=== PATIENT | female | born 1965 | race Caucasian/White ===

== ENCOUNTER 2020-06-25 11:10 | Outpatient (REF) | payer BC, SELFPAY ==
--- NOTE | 2020-06-25 | XR_ITS ---
EXAMINATION: XR FINGER, RIGHT CLINICAL INFORMATION: Right thumb pain. Status post injury. Suspected fracture. COMPARISON: None TECHNIQUE: Three views of the right thumb including frontal view of the right hand. FINDINGS: The bones and soft tissues are normal. No fracture. Alignment is anatomic. Joint spaces are maintained. XR/XR finger RT min 2V IMPRESSION: No radiographic evidence of any displaced fracture, subluxation or dislocation or radiopaque foreign body identified involving the right thumb.
== END 2020-06-25 11:11 | disposition home or self-care (01) ==
LOC: HO.HMGCX 11:10
PROVIDERS: PCP Internal Medicine; Visit Provider Internal Medicine
DX: M79.644 Pain in right finger(s) (principal)
CPT/HCPCS: 73140

== ENCOUNTER 2022-02-28 11:44 | Outpatient (REF) | payer BC, SELFPAY ==
--- NOTE | ~2022-02-28 | XR_ITS ---
EXAMINATION: XR CHEST CLINICAL INFORMATION: Cough. Shortness of breath. Rule out pneumonia. COMPARISON: None TECHNIQUE: 2 views of the chest were obtained. FINDINGS: No significant abnormality is noted involving the heart, lungs, mediastinum, bony thorax or soft tissues. XR/XR chest 2V IMPRESSION: Normal chest PA and lateral.
== END 2022-02-28 11:45 | disposition home or self-care (01) ==
LOC: HO.HMGCX 11:44
PROVIDERS: PCP Internal Medicine; Visit Provider Internal Medicine
DX: R05.9 Cough, unspecified (principal); R06.02 Shortness of breath
CPT/HCPCS: 71046

== ENCOUNTER 2022-07-17 11:41 | Outpatient (REF) | payer BC, SELFPAY ==
--- NOTE | ~2022-07-17 | XR_ITS ---
EXAMINATION: XR KNEE, RIGHT CLINICAL INFORMATION: Pain COMPARISON: None TECHNIQUE: Four views of the right knee. FINDINGS: There is no evidence of acute fracture or dislocation of the right knee. The right knee joint spaces are maintained. No significant spurring is appreciated. No right knee effusion is noted. There is a bone island seen about the lateral tibial plateau. XR/XR knee RT 4V IMPRESSION: No acute fracture, dislocation, or effusion of the right knee. No significant degenerative change.
== END 2022-07-17 11:42 | disposition home or self-care (01) ==
LOC: HO.HMGCX 11:41
PROVIDERS: PCP Internal Medicine; Visit Provider Internal Medicine
DX: M25.561 Pain in right knee (principal)
CPT/HCPCS: 73564

== ENCOUNTER 2023-04-23 08:35 | Outpatient (REF) | payer BC, SELFPAY ==
[2023-04-23 12:10] LABS: Hematocrit 44.6 % (37.0-47.0); Hemoglobin 14.1 g/dl (12.0-16.0); Mean Corpuscular HGB Conc 31.6 g/dl (31.0-35.0); Mean Corpuscular Hemoglobin 29.7 pg (27.0-33.0); Mean Corpuscular Volume 93.9 fL (80.0-98.0); Mean Platelet Volume 10.2 fL (9.4-12.3); Platelet Count 322 X10*3/uL (160-400); Red Blood Count 4.75 X10*6/uL (4.20-5.50); Red Cell Distribution Width 12.9 % (11.0-16.0); White Blood Count 4.7 X10*3/uL (4.8-10.8)
[2023-04-23 12:40] LABS: Alanine Aminotransferase 15 U/L (0-31); Albumin Level 4.7 g/dL (3.5-5.0); Alkaline Phosphatase 87 U/L (39-117); Anion Gap 12 (12-20); Aspartate Amino Transferase 24 U/L (5-31); Bilirubin Total 1.3 mg/dL (0.0-1.0); Blood Urea Nitrogen 19 mg/dL (9-16); Calcium 9.8 mg/dL (8.4-10.2); Carbon Dioxide 27 mmol/L (22-29); Chloride 105 mmol/L (96-108); Estimated Glomerular Filt Rate > 60; Glucose Fasting 84 mg/dL (60-99); Potassium 4.5 mmol/L (3.3-5.1); Sodium 139 mmol/L (135-145); Total Protein 7.6 g/dL (6.5-8.0)
[2023-04-23 12:46] LABS: Thyroid Stimulating Hormone 1.16 uIU/mL (0.32-4.0); Vitamin D 25-OH Total 52.3 ng/mL (>30)
[2023-04-23 12:50] LABS: Parathyroid Hormone Intact 56.8 pg/mL (8.7-77.1)
== END 2023-04-23 08:36 | disposition home or self-care (01) ==
LOC: HO.HMGCLDS 08:35
PROVIDERS: PCP Internal Medicine; Visit Provider Obstetrics & Gynecology Gynecology
DX: M81.0 Age-related osteoporosis without current pathological fracture (principal); N92.5 Other specified irregular menstruation; M85.89 Other specified disorders of bone density and structure, multiple sites; Z13.29 Encounter for screening for other suspected endocrine disorder
CPT/HCPCS: 36415; 80053; 82306; 83970; 84443; 85027

== ENCOUNTER 2024-01-29 09:43 | Outpatient (REF) | payer BC, SELFPAY ==
[2024-01-29 13:13] LABS: MANUAL DIFF FLAG NO
[2024-01-29 13:32] LABS: Basophils Percent Auto 0.5 % (0-2); Eosinophils Absolute Auto 0.1 X10*3/uL (0.0-0.4); Eosinophils Percent Auto 1.3 % (0-4); Hematocrit 42.5 % (37.0-47.0); Hemoglobin 13.8 g/dl (12.0-16.0); Imm Gran Abs Auto 0.01 X10*3/uL (0.00-0.03); Imm Gran Pct Auto 0.2 % (0.0-0.4); Lymphocytes Absolute Auto 1.5 X10*3/uL (1.2-4.9); Lymphocytes Percent Auto 27.3 % (20-40); Mean Corpuscular HGB Conc 32.5 g/dl (31.0-35.0); Mean Corpuscular Hemoglobin 30.7 pg (27.0-33.0); Mean Corpuscular Volume 94.4 fL (80.0-98.0); Mean Platelet Volume 9.9 fL (9.4-12.3); Monocytes Absolute Auto 0.5 X10*3/uL (0.1-1.2); Monocytes Percent Auto 8.5 % (2-11); Neutrophils Absolute Auto 3.4 x10*3/uL (2.0-8.3); Neutrophils Percent Auto 62.2 % (45-73); Platelet Count 328 X10*3/uL (160-400); Red Cell Distribution Width 13.7 % (11.0-16.0); White Blood Count 5.5 X10*3/uL (4.8-10.8)
[2024-01-29 14:10] LABS: Alanine Aminotransferase 32 U/L (0-31); Albumin Level 4.5 g/dL (3.5-5.0); Alkaline Phosphatase 82 U/L (39-117); Anion Gap 12 (12-20); Aspartate Amino Transferase 24 U/L (5-31); Bilirubin Total 1.3 mg/dL (0.0-1.0); Blood Urea Nitrogen 21 mg/dL (9-16); Calcium 9.3 mg/dL (8.4-10.2); Carbon Dioxide 26 mmol/L (22-29); Chloride 105 mmol/L (96-108); Cholesterol 233 mg/dL (<200); Estimated Glomerular Filt Rate > 60; Glucose Random 79 mg/dL (60-115); HDL Cholesterol 116 mg/dL (>40); LDL Cholesterol Calculated 108 mg/dL (<100); Potassium 4.2 mmol/L (3.3-5.1); Sodium 139 mmol/L (135-145); Total Protein 7.2 g/dL (6.5-8.0); Triglycerides 48 mg/dL (<150)
== END 2024-01-29 09:44 | disposition home or self-care (01) ==
LOC: HO.HMGCLDS 09:43
PROVIDERS: PCP Internal Medicine; Visit Provider Internal Medicine
DX: E78.00 Pure hypercholesterolemia, unspecified (principal); R53.83 Other fatigue
CPT/HCPCS: 36415; 80053; 80061; 85025

== ENCOUNTER 2024-04-13 09:32 | Day surgery (SDC) | payer BC, SELFPAY ==
[2024-04-11 13:52] VITALS: BMI 18.4
--- NOTE | 2024-04-12 08:52 | P.CONAN_ITS ---
Documented by User: Munira Cook NP 04/12/24 08:52 HPI - Anesthesia Eval Consult details Narrative: 59yo F for Colonoscopy [facility] Past Medical History Medical History No pertinent past medical history Surgical History Surgical History History of surgery History of dilatation and curettage Hx of section H/O colonoscopy Social History Social History (Updated 04/11/24 @ 13:52 by Kisha Valle RN) Household Members: Spouse Are you a primary healthcare specialist to a significant other at home: No Do you presently have visiting nurse or other home services: No Patient Tobacco Use Status: Never used Tobacco Use of substances other than those prescribed or required for medical reasons: No Have you been hit, kicked, punched, or otherwise hurt by someone within the past year? If so, by whom?: No Are you DNR?: No Advance Directives: No Advance Directives Information Provided: Yes Recently lost weight without trying: No Nutrition Risks: No Nutritional Risk Meds Allergies Allergy/AdvReac Type Severity Reaction Status Date / Time No Known Allergies Allergy Verified 04/13/24 09:29 [No Known Allergies*] Home Medications ?Medication ?Instructions ?Recorded ?Confirmed ?Last Taken ?Type No Known Home Meds 04/11/24 04/11/24 Unknown History Exam Height,Weight and Vital Signs: Height 5 ft 6 in Weight 51.71 kg Assessment and Plan Assessment Anesthesia Assessment: Chart Reviewed Documented by User: Trent Roche MD 04/13/24 10:11 [facility] Past Medical History Medical History No pertinent past medical history Family History Family history of problems with anesthesia: No Surgical History Surgical History History of surgery History of dilatation and curettage Hx of section H/O colonoscopy History of Problems with Anesthesia: No Social History Social History (Updated 04/11/24 @ 13:52 by Kisha Valle RN) Household Members: Spouse Are you a primary healthcare specialist to a significant other at home: No Do you presently have visiting nurse or other home services: No Patient Tobacco Use Status: Never used Tobacco Use of substances other than those prescribed or required for medical reasons: No Have you been hit, kicked, punched, or otherwise hurt by someone within the past year? If so, by whom?: No Are you DNR?: No Advance Directives: No Advance Directives Information Provided: Yes Recently lost weight without trying: No Nutrition Risks: No Nutritional Risk Meds Allergies Allergy/AdvReac Type Severity Reaction Status Date / Time No Known Allergies Allergy Verified 04/13/24 09:29 [No Known Allergies*] Home Medications ?Medication ?Instructions ?Recorded ?Confirmed ?Last Taken ?Type No Known Home Meds 04/11/24 04/11/24 Unknown History Exam Airway Mallampati Class: I TM Dist: >3cm Neck ROM: Full Assessment and Plan Assessment Anesthesia Assessment: Anesthesia Plan Discussed Final Anesthetic Review Family History of Problems with Anesthesia: No History of Problems with Anesthesia: No NPO: Yes ASA Class: I Final Preanesthetic Review: No Changes in Pt Med Stat, Meds/Allgs Chart Reviewed, Consent Obtained/Reviewed and Anes Risks/Benef Reviewed Patient Risk: Low Procedure Risk: Low Anesthetic Plan Anesthetic Plan: TIVA Disposition: Standard PACU
[2024-04-13 09:48] VITALS: BMI 18.0
[2024-04-13 10:02] VITALS: BP 99/50; PULSE 77; RESP 16; TEMP 36.4; O2SAT 99
[2024-04-13] MEDS: Lactated Ringers 1,000 ML 100 ML IVCONT (10:11)
[2024-04-13 11:47] VITALS: BP 88/49; PULSE 83; RESP 16; TEMP 36.1; O2SAT 98
--- NOTE | 2024-04-13 11:49 | PM.OP ---
Brief Operative Note Date of Service: 04/13/24 Pre-op diagnosis: Screening Post-op diagnosis: other (Polyps) Procedure: Colonoscopy to the cecum with cold snare polypectomy x 3 Surgeon: Gustavo Dominguez MD Anesthesia: MAC Was an Strategy Execution Consultant used for this Procedure?: No Estimated blood loss (mL): 2.0 Pathology: other (A. Cecal polyp B. Ascending colon polyps) Condition: stable Disposition: PACU
[2024-04-13 12:02] VITALS: BP 93/55; PULSE 79; RESP 16; O2SAT 100
[2024-04-13 12:18] VITALS: BP 95/56; PULSE 68; RESP 16; TEMP 36.9; O2SAT 100
--- NOTE | 2024-04-13 12:19 | OP_ITS ---
DATE OF SERVICE: 04/13/2024 SURGEON: Gustavo Dominguez MD INDICATIONS: The patient presents for evaluation of colorectal cancer screening. Full consent has been obtained from her for this, including risks of bleeding and perforation. PREOPERATIVE DIAGNOSIS: Colorectal cancer screening. POSTOPERATIVE DIAGNOSIS: PROCEDURE PERFORMED: Colonoscopy to cecum with cold snare polypectomy x 3. ESTIMATED BLOOD LOSS: COMPLICATIONS: ANESTHESIA: ASSISTANTS: SPECIMENS: POSTOPERATIVE DIAGNOSES: Colorectal cancer screening, colon polyps, mild sigmoid diverticulosis, and internal hemorrhoids. DESCRIPTION OF PROCEDURE: The patient was placed in left lateral decubitus position. The digital rectal exam revealed no abnormalities. The Olympus video pediatric colonoscope was entered into the rectum and advanced to the cecum with the assistance of abdominal wall pressure. Once in the cecum, I did identify cecal pouch with appendiceal orifice and a normal-appearing ileocecal valve. There was transillumination of light deep in the right lower quadrant. The entire cecum was well visualized. In the cecum, there was an approximately 4 mm polyp, which was removed by cold snare polypectomy and recovered by suction. The polypectomy site appeared clean, without any sign of residual polyp nor significant bleeding. The scope was then slowly withdrawn assessing all mucosal surfaces carefully. Preparation was excellent after the 2-day prep. In the proximal ascending colon, there were 2 relatively flat, approximately 8 mm polyps, both of which were removed by cold snare polypectomy and recovered by suction. Both polypectomy sites appeared clean, without any sign of residual polyp nor significant bleeding. I did not visualize any other polyps, colitis, or angiodysplasia. There was a mild amount of sigmoid diverticulosis. In the rectum, scope was retroflexed, visualizing internal hemorrhoids, but no other pathology. The rectal mucosa appeared normal. The scope was straightened and withdrawn from the patient. She tolerated the procedure well and was returned to the recovery area in stable condition. IMPRESSION: 1. Colon polyps. 2. Mild diverticulosis. 3. Internal hemorrhoids. PLAN: The results of the pathology will be checked. If the polyps are all hyperplastic, I would recommend a followup coloscopy in 10 years for screening. If any of them are tubular adenomas, I would recommend a followup colonoscopy in 5 years. If the 2 larger polyps are serrated polyps, I would then recommend a followup colonoscopy within 3 years. She was advised not to use any aspirin and NSAIDs for 1 week. She should use Miralax and fiber supplements at least once or twice every day for her chronic constipation. This has been discussed with her mother. She will otherwise see me on a p.r.n. basis. MD JOSE ROBERTO Underwood/JT / [phone] MTDD
== END 2024-04-13 12:47 | disposition home or self-care (01) ==
PROVIDERS: PCP Internal Medicine; Visit Provider Internal Medicine
PROC: 0DJD8ZZ Inspection of Lower Intestinal Tract, Via Natural or Artificial Opening Endoscopic (ICD-10-PCS; CPT 45378; principal; 2024-04-13 10:30)
DX: Z12.11 Encounter for screening for malignant neoplasm of colon (principal); D12.0 Benign neoplasm of cecum; D12.2 Benign neoplasm of ascending colon; K57.30 Diverticulosis of large intestine without perforation or abscess without bleeding; K64.8 Other hemorrhoids; K59.09 Other constipation; Z80.3 Family history of malignant neoplasm of breast
CPT/HCPCS: 45385; 88305; J2003; J2250; J2704

== ENCOUNTER 2024-08-01 14:58 | Outpatient (REF) | payer BC, SELFPAY ==
--- NOTE | ~2024-08-01 | XR_ITS ---
EXAMINATION: XR PELVIS CLINICAL INFORMATION: PELVIC, LOWER BACK PAIN COMPARISON: None available. TECHNIQUE: AP view of the pelvis. FINDINGS: No fracture. Hip joint spaces are maintained. Normal acetabular coverage. Alignment is anatomic. Sacroiliac joints and pubic symphysis are normal. No abnormal soft tissue calcifications. XR/XR pelvis 1-2V IMPRESSION: Normal pelvis. Electronically signed by: Maximino Dao MD 08/02/2024 01:13 PM EDT
--- NOTE | ~2024-08-01 | XR_ITS ---
EXAMINATION: XR LUMBOSACRAL SPINE CLINICAL INFORMATION: LOW BACK PAIN COMPARISON: None available. TECHNIQUE: Three views of the lumbosacral spine. FINDINGS: There is a gentle right convex scoliosis, possibly positional. Normal lordosis. Normal alignment. No subluxation. No fracture, compression deformity, or suspicious bone lesion. Early disc degeneration L2-3. Discs otherwise normal. Facets are normally aligned. No significant facet arthropathy. SI joints and sacrum appear normal. No soft tissue abnormality. XR/XR lumbar spine 2-3V IMPRESSION: 1. Early disc degeneration L2-3. Otherwise normal exam. Electronically signed by: Maximino Dao MD 08/02/2024 01:15 PM EDT
--- OUTSIDE RECORDS SUMMARY | 2024-08-01 17:10 | XMS_ITS | Clinical Summary ---
Author Organization [facility] Address [address] [place] [address] Phone Care Team Providers Care Corporate Strategy Intern Name Role Phone Unavailable Primary Care Provider Unavailabl e Social History Tobacco Use Types Packs/Day Years Used Date Smoking Tobacco: Never Assessed Comments Unknown Sex and Gender Information Value Date Recorded Sex Assigned at Not on file Legal Sex Female 1:16 PM EST Gender Identity Not on file Sexual Orientation Not on file Plan of Treatment Health Maintenance Due Date Last Done Comments DTaP,Tdap,and Td Vaccines (1 - Tdap) 02/02/1984 Hepatitis B Vaccines (1 of 3 - 19+ 3-dose series) 02/02/1984 Cervical Cancer Screening: Pap Smear 1986 Pneumococcal Vaccine: 50+ Years (1 of 1 - PCV) 2015 Zoster Vaccines (1 of 2) 2015 Colorectal Cancer Screening: Colonoscopy 04/22/2022 Depression Screening 04/22/2022 HIV Screening 04/22/2022 Hepatitis C Screening 04/22/2022 Social Influencers of Health Screening 04/22/2022 COVID-19 Vaccine ( - 2023- season) 2024 Influenza Vaccine (#1) 2024 Breast Cancer Screening 03/17/2026 03/17/20 24, 03/12/2023, 03/03/2022, Additional history exists RSV Immunization Patients 60+ Years Old (1 - 1-dose 75+ series) 02/02/2040 HIB Vaccines Aged Out No longer eligi ble based on patient's age to complete this topic HPV Vaccines Aged Out No longer eligi ble based on patient's age to complete this topic Hepatitis A Vaccines Aged Out No long er eligible based on patient's age to complete this topic IPV Vaccines Aged Out No longer eligi ble based on patient's age to complete this topic MMR Vaccines Aged Out No longer eligi ble based on patient's age to complete this topic Meningococcal ACWY Vaccine Aged Out N o longer eligible based on patient's age to complete this topic Meningococcal B Vacine Aged Out No lo nger eligible based on patient's age to complete this topic Pneumococcal Vaccine: Pediatrics (0 to 5 Years) and At-Risk Patients (6 to 64 Years) Aged Out No longer eligible based on patient's age to complete this topic RSV Immunization Patients Under 20 months Aged Out No longer eligible based on patient's age to complete this topic Varicella Vaccines Aged Out No longer eligible based on patient's age to complete this topic Procedures Procedure Name Priority Date/Time Associated Diagnosis Comments [facility] SCREENING DIGITAL Routine 03/17/2024 11:02 AM EDT Encounter for screening mammogram for malignant neoplasm of breast from Last 3 Months or Most Recently Relevant to Health Maintenance Results * [facility] SCREENING DIGITAL (03/17/2024 11:02 AM EDT) Anatomical Region Laterality Modality Mammography 03/17/2024 9:29 AM EDT Narrative 03/17/2024 11:[address] [facility] Diagnostic Imaging Department [address] [place] [id number] Patient: ??ERIKA KENT ?/Age/Sex: 1965 - 59 - F Unit#: ??[id number] ? Location/Status: ??SPDIMAM/REG CLI ? Mnemonic/Ordering Site: ??DIGSC/SPMAM Ordering Physician: ??AMANDA GRIFFIN MD [facility] Screening Digital - 03/17/24 - 0953 Report Status:Signed EXAM: [facility] Screening Digital EXAM DATE AND TIME: 03/17/2024 9:54 AM HISTORY: ??Annual screening COMPARISON: ??03/12/2023, 03/17/2023, 03/03/2022, 02/25/2021 and 02/22/2020 TECHNIQUE: Bilateral digital breast tomosynthesis was performed in the CC and MLO projections. Computer aided detection with Zealify 7.2-H and SnapTell 3D 3.1 was employed. TISSUE DENSITY: b. There are scattered areas of fibroglandular density. FINDINGS: No suspicious masses, grouped microcalcifications, or areas of architectural distortion are seen. The skin and vascularity are unremarkable. ??Stable biopsy marker in the right breast. IMPRESSION: Stable mammographic appearance of the breasts. ??No evidence of malignancy is seen. A negative mammogram in the presence of a clinically suspicious palpable abnormality does not preclude the possibility of malignancy or alter the indications for biopsy. BI-RADS: ??Category 2: Benign RECOMMENDATION(S): 1: Routine screening mammogram BILATERAL in 1 year. Dictating Physician: ??PONCHO ANGEL MD Electronically Signed by: ??PONCHO ANGEL MD Dic Date/Time: ??03/17/24 1100 Sign date/Time: ??03/17/24 1102 Procedure Note Poncho Angel MD - 03/26/[address] [facility] Diagnostic Imaging Department [address] [place], [place] [id number] Patient: ERIKA KENT /Age/Sex: 1965 - 59 - F Unit#: [id number] Location/Status: SPDIMAM/REG CLI [facility] Physician: AMANDA GRIFFIN MD [facility] Screening Digital - 03/17/24 - 0953 Report Status:Signed EXAM: [facility] Screening Digital EXAM DATE AND TIME: 03/17/2024 9:54 AM HISTORY: Annual screening COMPARISON: 03/12/2023, 03/17/2023, 03/03/2022, 02/25/2021 and 02/22/2020 TECHNIQUE: Bilateral digital breast tomosynthesis was performed in the CCand MLO projections. Computer aided detection with Zealify 7.2-H andSnapTell 3D 3.1 was employed. TISSUE DENSITY: b. There are scattered areas of fibroglandular density. FINDINGS: No suspicious masses, grouped microcalcifications, or areas ofarchitectural distortion are seen. The skin and vascularity are unremarkable. Stablebiopsy marker in the right breast. IMPRESSION: Stable mammographic appearance of the breasts. No evidence of malignancyis seen. A negative mammogram in the presence of a clinically suspicious palpable abnormality does not preclude the possibility of malignancy or alter the indications for biopsy. BI-RADS: Category 2: Benign RECOMMENDATION(S): 1: Routine screening mammogram BILATERAL in 1 year. Dictating Physician: PONCHO ANGEL MD Electronically Signed by: PONCHO ANGEL MD Dic Date/Time: 03/17/24 1100 Sign date/Time: 03/17/24 1102 us Amanda Griffin MD IMG BI PROCEDURES Final Re sult from Last 3 Months or Most Recently Relevant to Health Maintenance
--- OUTSIDE RECORDS SUMMARY | 2024-08-01 17:10 | XMS_ITS ---
Author Organization [facility] Address [address] [place] [phone] Care Team Providers Care Stitcher Standard Machine Name Role Phone Bryce Enrique MD Primary Care Provider Unavailab Gustavo Kumari [phone] REASON FOR VISIT screening Problems Problem Type SNOMED Code ICD Code Onset Dates Problem Status W/U Status Risk Notes Problem Diverticular disease of colon (515008278) Diverticulosis of large intestine without perforation or abscess without bleeding (K57.30) Active confirmed Encounters Encounter Location Date Provider Diagnosis [facility] Outpatient [address] [place] [phone] 04/13/2024 Gustavo Dominguez Colon cancer scree karen [...] No Information Progress Notes * MARCELL NORTONB:02[birth year]01 (59 yo F)Acc No.[id number]:04/13/2024 COLON WITH MAC Patient:?EDNA NORTON Provider:?Gustavo Dominguez MD :1965???Age:59 Y???Sex:Female D ate:04/13/2024 Address:[address] [place] [address], [id number] Pcp:Bryce Enrique MD Subjective: * Chief Complaints: * ???1. Screening. * Medical History:? Objective: * Vitals:? Assessment: * Assessment: 1.?Colon cancer screening - Z12.11 (Primary)???2.?Colon polyps - K63.5???3.?Diverticulosis of large intestine without perforation or abscess without bleeding - K57.30???4.?Other hemorrhoids - K64.8??? Plan: * Treatment: * Procedure Codes:?12638 LESIO N REMOVAL COLONOSCOPY, Modifiers: PT * * The named appointment provid er may or may not be the originator of this progress note, and it is not deemed complete until electronically signed by the appointment provider. Sign off status: Pending * Provider:?Gustavo Dominguez MD Date:? 024 Generated for Romana smith/Niurka/eTransmitting on:?08/01/2024 05:10 PM EDT
--- OUTSIDE RECORDS SUMMARY | 2024-08-01 17:10 | XMS_ITS ---
Author Organization [employer] [facility] Address [address] [facility] [address] [place] [address] Care Team Providers Care Still Operator Batch Or Continuous Name Role Phone MELISSA QUEEN M.D. Primary Care Provider Unavail Amanda Rodriguez Unavailable [phone] Allergies No Known Allergies Results Component Value Reference Range Notes Urinalysis Reviewed date:04/28/2024 01:53:24 PM Interpretation: Performing Lab: Notes/Report: REASON FOR VISIT Annual JOURNEY LINEMAN Physical, Annual JOURNEY LINEMAN Physical 50-59* Medications Medication SIG (Take, Route, Frequency, Duration) Notes Start Date End Date Status Estradiol Vaginal Cream 0.01% 1 Gram Vaginally Twice a Week for 90 Days 04/22/2022 Active Estradiol Vaginal Cream 0.01% 1 Gram to the affected area Vaginal/Vulva Twice a week for 90 Days 04/21/2023 Active Estradiol Vaginal Cream 0.01% 1 Gram to the affected area Vaginal/Vulva Twice a week for 90 Days 04/28/2024 Active Social History Tobacco Use: Social History Observation Description Date Details (start date - stop date) Never Smoker NA - NA Tobacco Use/Smoking Question Answer Notes Are you a nonsmoker Alcohol Screen (Audit-C) Question Answer Notes Did you have a drink containing alcohol in the p ast year? No Points 0 Interpretation Negative Sexual History Question Answer Notes Had sex in the past 12 months (vaginal, oral, or anal)? Yes with Men only Prevention strategies discussed: Other Tobacco use other than smoking: Question Answer Notes Are you an other tobacco user? No Vital Signs Temperature 97.7 degrees Fahrenheit 04/28/20 24 Blood pressure systolic 110 mm Hg 04/28/20 24 Blood pressure diastolic 78 mm Hg 024 Height 65.5 in 04/28/2024 Weight 115 lbs 04/28/2024 BMI 18.84 kg/m2 04/28/2024 Encounters Encounter Location Date Provider Diagnosis [address] [address] 04/28/2024 Amanda Griffin Encounter for gynecological examination (general) (routine) without abnormal findings Z01.419 ; Encounter for screening mammogram for malignant neoplasm of breast Z12.31 ; Family history of malignant neoplasm of breast Z80.3 ; Postmenopausal atrophic vaginitis N95.2 and Age-related osteoporosis without current pathological fracture M81.0 Assessments Encounter Date Diagnosis (ICD Code) Assessment Notes Treatment Notes Treatment Clinical Notes Section Notes 04/28/2024 Encounter for gynecological examination (general) (routine) without abnormal findings (ICD-10 - Z01.419) NO PAP TEST, DUE IN 2025. 04/28/2024 Encounter for screening mammogram for malignant neoplasm of breast (ICD-10 - Z12.31) REGULAR MAMMOGRAMS AND SBE'S WERE RECOMMENDED. 04/28/2024 Family history of malignant neoplasm of breast (ICD-10 - Z80.3) DISCUSSED STRONG FAMILY HX OF BREAST CA. HER MOTHER WHO HAD BREAST CA IS BRCA NEGATIVE. 04/28/2024 Postmenopausal atrophic vaginitis (ICD-10 - N95.2) CONTINUE ESTRADIOL CREAM. BENEFITS AND RISKS WERE DISCUSSED. SHE ACCEPTS RISKS. RX AND INSTRUCTIONS WERE GIVEN. 04/28/2024 Age-related osteoporosis without current pathological fracture (ICD-10 - M81.0) DISCUSSED OSTEOPOROSIS AND ITS IMPACT ON HER HEALTH. ADEQUATE CALCIUM AND VIT D. WEIGHT BEARING EXERCISES. OSTEO PRECAUTIONS. REPEAT BMD IN 2024. Plan Of Treatment Medication Medication Name Sig Start Date Stop Date Notes Estradiol Vaginal Cream 0.01% 1 Gram to the affected area Vaginal/Vulva Twice a week for 90 Days 04/28/2024 Treatment Notes Assessment Notes Encounter for gynecological examination (general) (routine) without abnormal findings NO PAP TEST, DUE IN 2025. Encounter for screening mamm ogram for malignant neoplasm of breast REGULAR MAMMOGRAMS AND SBE'S WERE RECOMMENDED. Family history of malignant neoplasm of breast DISCUSSED STRONG FAMILY HX OF BREAST CA. HER MOTHER WHO HAD BREAST CA IS BRCA NEGATIVE. Postmenopausal atrophic vaginitis CONTINUE ESTRADIOL CREAM. BENEFITS AND RISKS WERE DISCUSSED. SHE ACCEPTS RISKS. RX AND INSTRUCTIONS WERE GIVEN. Age-related osteoporosis kaitlin menendez current pathological fracture DISCUSSED OSTEOPOROSIS AND ITS IMPACT ON HER HEALTH. ADEQUATE CALCIUM AND VIT D. WEIGHT BEARING EXERCISES. OSTEO PRECAUTIONS. REPEAT BMD IN 2024. Pending Test Test Name Order Date BONE DENSITY 04/28/2024 MM Digital Mammo Screening 04/28/2024 Next Appt Details Follow Up: 1 Year, Reason: Provider Name:Amanda moe, 05/02/2025 10:20:00 AM, [address] [place] [address], [address], [place], [address], Progress Notes * SELAM CHILDERSDONNYMARCELLB:02[birth year]01 (59 yo F)Acc No.[id number]:04/28/2024 PROGRESS NOTES Patient:?EDNA NORTON Appointment Provider:?Amanda moe M.D. :1965???Age:59 Y???Sex:Female D ate:04/28/2024 Address:[address] [place], [place] [id number] Pcp:MELISSA QUEEN M.D. Subjective: * Chief Complaints: * ???Annual JOURNEY LINEMAN PhysicalAnnual JOURNEY LINEMAN Physical 50-59* * HPI: ???New/Follow-up Patient Consult:? PAT ENTERED MENOPAUSE IN 2018.? SHE USES ESTRADIOL CREAM FOR ATROPHIC VAGINITIS AND HAS NOTED DECREASED FREQUENCY OF UTI'S.? SHE IS DOING WELL. HER MOTHER, MGM AND 3 MATERNAL AUNTS HAD BREAST CA.? HER MOTHER WAS BRCA NEGATIVE. HER? MAMMOGRAM DONE IN FEB 2023 SHOWED BREASTS ARE NOT DENSE AND REPEAT LEFT MAMMOGRAM WAS NORMAL.? SHE USED TO HAVE DENSE BREASTS AND HER LIFETIME BREAST CA RISK WAS 41.6%.? SHE HAD BILATERAL BREAST MRI IN 2019 AND SCREENING BREAST ULTRASOUND IN 2016, 2017, 2018, 2020 AND 2022.? WE WILL GET HER RECENT 2023 MAMMOGRAM REPORT AND IF SHE HAS DENSE BREASTS THIS YEAR, WE WILL SCHEDULE A SCREEING BREAST MRI IN JULY 2024. HER LAST PAP TEST IN 2022 WAS NEGATIVE AND HPV NEGATIVE. HER LAST BMD IN 2022 SHOWED OSTEOPOROSIS WITH T-SCORE OF -2.5 AT THE [facility].? OSTEO WORK UP WAS NEGATIVE AND SHE REFUSED MEDICATIONS. SHEHAD COLONOSCOPIES DONE IN 2018 AND 2023. PFIZER X 3. ???Annual:? Patient presents for annual exam, ages 50-59. ?General Health Maintenance:?Current breast complaints:?no breast pain, mass, discharge, or skin changes ?Urinary problems:?patient reports no urinary health problems or bowel health problems ?Calcium intake:?takes adequate calcium via diet and supplementation ?Significant JOURNEY LINEMAN problems:?no significant accelerator systems director symptoms or problems * ROS:?general:?no?chest pain.?no?palpitations.?no?headache.?no?cough.?no?shortness of breath.?no?fever.?no?unexplained weight loss.?no?nausea/vomiting.?no?change in bowel movements.?no blood in stool.?no?genitourinary complaints.?no?skin complaints.? * Medical History:? 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 Control:?vasectomy.?Colonoscopy?03/2024 [facility],06/2018.?Bone Density:?03/12/23.?JOURNEY LINEMAN HISTORY MISC.?Lauro Jose = 41.6%.? * OB History:?Total pregnancies?3.?Total living children?3.?NVD?2.?(s)?1.? * Surgical History:? 08/1992Hysteroscopy Polypectomy And D+C 05/2017Colonoscopy * Hospitalization/Major Diagno stic Procedure:?2 Vaginal Deliveries - 1 See Surgical Hx * Family History:?Mother: aliv e, breast cancer age 64, diagnosed with Unspecified essential hypertension.?Father: alive, prostate cancer, age 68. [place], diagnosed with Unspecified essential hypertension.?Maternal Grand Mother: breast cancer.? 2 Maternal Aunts: Breast Cancer Mother had Braca testing - Negative. * Social History:?Tobacco Use:?Tobacco Use/Smoking?Are you a?nonsmoker ?Tobacco use other than smoking?Are you an other tobacco user??No ???Sexual History:?Sexual History?Had sex in the past 12 months (vaginal, oral, or anal)??Yes ?with?Men only ?Prevention strategies discussed:?Other ?Details of Sexual History?Are you sexually active??Yes ???Drugs/Alcohol:?Drugs?Have you used drugs other than those for medical reasons in the past 12 months??No ?Alcohol Screen (Audit-C)?Did you have a drink containing alcohol in the past year??No ?Points?0 ?Interpretation?Negative ???Miscellaneous:?Children: yes, 3. ?Exercise: yes, Gym , 2-3 times per week. Walk dog, 2-3 times per week. ?Home smoke detector use: yes. ?Living with: family. ?Marital status: . ?Natural support system: yes. 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 ?Sexually active: yes, monogamous relationship. * Medications:?TakingEstradiol Vaginal Cream 0.01% Cream 1 Gram Vaginally Twice a Week Estradiol Vaginal Cream 0.01% Cream 1 Gram to the affected area Vaginal/Vulva Twice a week Medication List reviewed and reconciled with the patientTaking Estradiol Vaginal Cream 0.01% Cream 1 Gram Vaginally Twice a Week Taking Estradiol Vaginal Cream 0.01% Cream 1 Gram to the affected area Vaginal/Vulva Twice a week Medication List reviewed and reconciled with the patient * Allergies:?N.K.D.A.no[Allerg ies Verified] Objective: * Vitals:?Ht: 65.5 in, Wt:115l bs, BMI:18.84Index, BP:110/78mm Hg, Temp:97.7F. * Examination: ???General Exam: ?CONSTITUTIONAL:?General Appearance:?alert, in no acute distress, normal, well nourished ?NECK/THYROID:?Inspection/Palpation:?normal ?Thyroid:?normal size and shape ?RESPIRATORY:?Auscultation: clear to auscultation bilaterally, Respiratory Effort: normal.?CARDIOVASCULAR:?Auscultation: regular rate and rhythm.?BREAST, Right:?Inspection/Palpation:?no discharge, no masses present, no nipple retraction, no skin changes, no skin dimpling, no tenderness, no lymphadenopathy, no axillary mass, no axillary tenderness ?BREAST, Left:?Inspection/Palpation:?no discharge, no masses present, no nipple retraction, no skin changes, no skin dimpling, no tenderness, no lymphadenopathy, no axillary mass, no axillary tenderness ?GASTROINTESTINAL:?Abdomen:?no masses, nontender, nondistended ?Liver and Spleen:?normal ?Hernias:?no hernias present, no inguinal adenopathy ?MUSCULOSKELETAL:?Inspection/Palpation:?no clubbing, cyanosis, or edema ?SKIN:?Skin:?normal ?NEURO/PSYCH:?Orientation:?time , place, person ?Mood/Affect:?normal?Genitourinary: ?EXTERNAL GENITALIA:?External Genitalia:?normal, no lesions ?VAGINA:?Vagina:?normal appearance, no abnormal discharge, no lesions ?BLADDER:?Bladder:?no mass, nontender ?URETHRA:?Urethra:?no erythema or lesions present ?CERVIX:?Cervix:?no lesions, nontender ?UTERUS:?Uterus:?nontender, normal contour, normal mobility, normal size ?ADNEXA:?Adnexa:?no masses, no tenderness ?ANUS AND PERINEUM:?Anus/Perineum:?visually normal??? Assessment: * Assessment: 1.?Encounter for gynecologic al examination (general) (routine) without abnormal findings - Z01.419???2.?Encounter for screening mammogram for malignant neoplasm of breast - Z12.31???3.?Family history of malignant neoplasm of breast - Z80.3?? 4.?Postmenopausal atrophic vaginitis - N95.2???5.?Age-related osteoporosis without current pathological fracture - M81.0??? Plan: * Treatment: 2.?Encounter for screening m ammogram for malignant neoplasm of breast?Imaging: MM Digital Mammo Screening Notes: REGULAR MAMMOGRAMS AND SBE'S WERE RECOMMENDED.?? 3.?Family history of maligna nt neoplasm of breast? Notes: DISCUSSED STRONG FAMILY HX OF BREAST CA. HER MOTHER WHO HAD BREAST CA IS BRCA NEGATIVE.?? 4.?Postmenopausal atrophic v aginitis? Start Estradiol Vaginal Cream Cream, 0.01%, 1 Gram to the affected area, Vaginal/Vulva, Twice a week, 90 Days, 42.5 Gram, Refills 4.?? Notes: CONTINUE ESTRADIOL CREAM. BENEFITS AND RISKS WERE DISCUSSED. SHE ACCEPTS RISKS. RX AND INSTRUCTIONS WERE GIVEN.?? 5.?Age-related osteoporosis without current pathological fracture?Imaging: BONE DENSITY Notes: DISCUSSED OSTEOPOROSIS AND ITS IMPACT ON HER HEALTH. ADEQUATE CALCIUM AND VIT D. WEIGHT BEARING EXERCISES. OSTEO PRECAUTIONS. REPEAT BMD IN 2024.?? * Procedure Codes:? * Preventive Medicine:? ??YOUR PREVENTIVE WELLNESS PLAN:?Osteoporosis prevention?Calcium, D, strength training.?Breast Cancer Screening (Mammogram):?annually.?Cervical Cancer Screening (Pap Smear):?q 3 years with HPV screen.?Colorectal Cancer Screening:?q 10 years.? * Follow Up:?1 Year * Images: Billing Information: * Visit Code:? 44759 Preventive Care New Pt. Age 40-64. 23411 Preventive Care Est Pt. Age 40-64. * Procedure Codes:? * Sign off status: Completed Addendum: * ? true * Appointment Provider:?Amanda Griffin M.D. Date:?04/28/2024 Generated for Romana smith/Niurka/eTlouisesmitting on:?08/01/2024 05:10 PM EDT History and Physical Notes * HPI (History of Present Illness) Category Sub-Category Detail Notes Category Not es New/Follow-up Patient Consult PAT ENTERED MENOPAUSE IN 2017. SHE USES ESTRADIOL CREAM FOR ATROPHIC VAGINITIS AND HAS NOTED DECREASED FREQUENCY OF UTI'S. SHE IS DOING WELL. HER MOTHER, MGM AND 3 MATERNAL AUNTS HAD BREAST CA. HER MOTHER WAS BRCA NEGATIVE. HER MAMMOGRAM DONE IN FEB 2023 SHOWED BREASTS ARE NOT DENSE AND REPEAT LEFT MAMMOGRAM WAS NORMAL. SHE USED TO HAVE DENSE BREASTS AND HER LIFETIME BREAST CA RISK WAS 41.6%. SHE HAD BILATERAL BREAST MRI IN 2019 AND SCREENING BREAST ULTRASOUND IN 2016, 2017, 2018, 2020 AND 2022. WE WILL GET HER RECENT 2023 MAMMOGRAM REPORT AND IF SHE HAS DENSE BREASTS THIS YEAR, WE WILL SCHEDULE A SCREEING BREAST MRI IN JULY 2024. HER LAST PAP TEST IN 2022 WAS NEGATIVE AND HPV NEGATIVE. HER LAST BMD IN 2022 SHOWED OSTEOPOROSIS WITH T-SCORE OF -2.5 AT THE [facility]. OSTEO WORK UP WAS NEGATIVE AND SHE REFUSED MEDICATIONS. SHEHAD COLONOSCOPIES DONE IN 2018 AND 2023. Squid [employer]il X 3. Annual General Health Maintenance: Current breast complaints:: no breast pain, mass, discharge, or skin changes Urinary problems:: patient r eports no urinary health problems or bowel health problems Calcium intake:: takes adequ ate calcium via diet and supplementation Significant JOURNEY LINEMAN problems:: n o significant accelerator systems director symptoms or problems Examination Category Sub-Category Detail Notes Category Not es General Exam CONSTITUTIONAL: General Appearan ce:: alert, in no acute distress, normal, well nourished NECK/THYROID: Thyroid:: normal size and shape Inspection/Palpation:: normal RESPIRATORY: Auscultation: clear to auscultation bilaterally, Respiratory Effort: normal CARDIOVASCULAR: Auscultation: regula r rate and rhythm GASTROINTESTINAL: Hernias:: no hernias present, no inguinal adenopathy Liver and Spleen:: normal Abdomen:: no masses, nontender, nondiste nded MUSCULOSKELETAL: Inspection/Palpation:: no clubb ing, cyanosis, or edema SKIN: Skin:: normal NEURO/PSYCH: Mood/Affect:: normal Orientation:: time , place, person BREAST, Right: Inspection/Palpation :: no discharge, no masses present, no nipple retraction, no skin changes, no skin dimpling, no tenderness, no lymphadenopathy, no axillary mass, no axillary tenderness BREAST, Left: Inspection/Palpation :: no discharge, no masses present, no nipple retraction, no skin changes, no skin dimpling, no tenderness, no lymphadenopathy, no axillary mass, no axillary tenderness Genitourinary EXTERNAL GENITALIA: External Genitalia:: nor mal, no lesions VAGINA: Vagina:: normal appearance, no a bnormal discharge, no lesions BLADDER: Bladder:: no mass, nontender URETHRA: Urethra:: no erythema or lesions present CERVIX: Cervix:: no lesions, nontender UTERUS: Uterus:: nontender, normal conto ur, normal mobility, normal size ADNEXA: Adnexa:: no masses, no tendernes s ANUS AND PERINEUM: Anus/Perineum:: visually norm al
--- OUTSIDE RECORDS SUMMARY | 2024-08-01 17:10 | XMS_ITS ---
Author Organization [facility] Address [address] [address] Care Team Providers Care Seam Sewer Name Role Phone MELISSA QUEEN M.D. Primary Care Provider Unavail Amanda Rodriguez Unavailable [phone] Allergies No Known Allergies REASON FOR VISIT BD & LAB RESULTS Medications Medication SIG (Take, Route, Frequency, Duration) Notes Start Date End Date Status Estradiol Vaginal Cream 0.01% 1 Gram Vaginally Twice a Week for 90 Days 04/22/2022 Active Estradiol Vaginal Cream 0.01% 1 Gram to the affected area Vaginal/Vulva Twice a week for 90 Days 04/21/2023 Active Vital Signs Temperature 97.1 degrees Fahrenheit 05/21/20 23 Blood pressure systolic 110 mm Hg 05/21/20 23 Blood pressure diastolic 76 mm Hg 023 Height 65.5 in 05/21/2023 Weight 117 lbs 05/21/2023 BMI 19.17 kg/m2 05/21/2023 Encounters Encounter Location Date Provider Diagnosis [facility] [address] 05/21/2023 Amanda Griffin Age-related osteoporosis without current pathological fracture M81.0 Assessments Encounter Date Diagnosis (ICD Code) Assessment Notes Treatment Notes Treatment Clinical Notes Section Notes 05/21/2023 Age-related osteoporosis without current pathological fracture (ICD-10 - M81.0) DISCUSSED BMD RESULTS AND OSTEOPOROSIS AND ITS IMPACT ON HER HEALTH. DISCUSSED NORMAL OSTEO WORK UP. ADEQUATE CALCIUM AND VIT D. WEIGHT BEARING EXERCISES. OSTEO PRECAUTIONS. DISCUSSED EITHER JUST CLOSE MONITORING WITH ADEQUATE CALCIUM, VIT D AND EXERCISE VS STARTING TX WITH BIPHOSPHANATES LIKE FOSAMAX. THE PAT CHOSE THE FORMER OPTION. WE WILL REPEAT HER BMD IN 2 YEARS AND IF WORSE, THEN SHE IS AMENABLE TO STARTING FOSAMAX. Plan Of Treatment Treatment Notes Assessment Notes Age-related osteoporosis wit hout current pathological fracture DISCUSSED BMD RESULTS AND OSTEOPOROSIS AND ITS IMPACT ON HER HEALTH. DISCUSSED NORMAL OSTEO WORK UP. ADEQUATE CALCIUM AND VIT D. WEIGHT BEARING EXERCISES. OSTEO PRECAUTIONS. DISCUSSED EITHER JUST CLOSE MONITORING WITH ADEQUATE CALCIUM, VIT D AND EXERCISE VS STARTING TX WITH BIPHOSPHANATES LIKE FOSAMAX. THE PAT CHOSE THE FORMER OPTION. WE WILL REPEAT HER BMD IN 2 YEARS AND IF WORSE, THEN SHE IS AMENABLE TO STARTING FOSAMAX. Next Appt Details Follow Up: prn, Reason: Provider Name:Amanda moe, 05/02/2025 10:20:00 AM, [address] [place] [address], [facility] [address], [place], [address], Progress Notes * MARCELL NORTONB:02[birth year]01 (58 yo F)Acc No.[id number]:05/21/2023 PROGRESS NOTES Patient:?EDNA NORTON Appointment Provider:?Amanda moe M.D. :1965???Age:58 Y???Sex:Female D ate:05/21/2023 Address:[address] [place], [place] [id number] Pcp:MELISSA QUEEN M.D. Subjective: * Chief Complaints: * ???BD & LAB RESULTS * HPI: ???New/Follow-up Patient Consult:? PAT AND DAUGHTER ARE HER TO DISCUSS HER BMD RESULTS AND OSTEO WORK UP RESULTS. ?HER LAST BMD IN FEB 2023 SHOWED OSTEOPOROSIS WITH T-SCORE OF -2.5 AT THE [facility]. HER MOTHER WAS OSTEOPOROTIC. SHE HAS NO HX OF FRACTURES. ?OSTEO WORK UP WAS NORMAL. * ROS:?general:?no?chest pain.?no?palpitations.?no?headache.?no?cough.?no?shortness of breath.?no?fever.?no?unexplained weight loss.?no?nausea/vomiting.?no?change in bowel movements.?no blood in stool.?no?genitourinary complaints.?no?skin complaints.? * Medical History:? 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 Control:?vasectomy.?Colonoscopy?06/2018.?Bone Density:?03/12/23.?ATHLETE MARKETING AGENT HISTORY MISC.?Lauro Albrechtck = 41.6%.? * OB History:?Total pregnancies?3.?Total living children?3.?NVD?2.?(s)?1.? * Medications:?TakingEstradiol Vaginal Cream 0.01% Cream 1 Gram Vaginally Twice a WeekEstradiol Vaginal Cream 0.01% Cream 1 Gram to the affected area Vaginal/Vulva Twice a weekMedication List reviewed and reconciled with the patientTaking Estradiol Vaginal Cream 0.01% Cream 1 Gram Vaginally Twice a WeekTaking Estradiol Vaginal Cream 0.01% Cream 1 Gram to the affected area Vaginal/Vulva Twice a weekMedication List reviewed and reconciled with the patient * Allergies:?N.K.D.A.no[Allerg ies Verified] Objective: * Vitals:?Ht: 65.5 in, Wt:117 lbs, BMI:19.17 Index, BP:110/76 mm Hg, Temp:97.1 F. Assessment: * Assessment: 1.?Age-related osteoporosis without current pathological fracture - M81.0 (Primary)? Plan: * Treatment: * Procedure Codes:? * Follow Up:?prn * Images: Billing Information: * Visit Code:? * Procedure Codes:? * Sign off status: Completed true * Appointment Provider:?Amanda Griffin M.D. Date:?05/21/2023 Generated for Romana smith/Niurka/Meeta on:?08/01/2024 05:10 PM EDT History and Physical Notes * HPI (History of Present Illness) Category Sub-Category Detail Notes Category Not es New/Follow-up Patient Consult PAT AND DAUGHTER ARE HER TO DISCUSS HER BMD RESULTS AND OSTEO WORK UP RESULTS. HER LAST BMD IN FEB 2023 SHOWED OSTEOPOROSIS WITH T-SCORE OF -2.5 AT THE [facility]. HER MOTHER WAS OSTEOPOROTIC. SHE HAS NO HX OF FRACTURES. OSTEO WORK UP WAS NORMAL.
--- OUTSIDE RECORDS SUMMARY | 2024-08-01 17:10 | XMS_ITS | Patient Health Record ---
Author Organization [facility] Address [address] [place] [address] Care Team Providers Care Cloth Brushing And Sueding Supervisor Name Role Phone MELISSA QUEEN M.D. Primary Care Provider Unavail able Amanda Griffin Unavailable [phone] Allergies No Known Allergies Results Component Value Reference Range Notes Urinalysis Reviewed date:04/28/2024 01:53:24 PM Interpretation: Performing Lab: Notes/Report: Reason For Referral No Information Medications Medication SIG (Take, Route, Frequency, Duration) [...] Are you an other tobacco user? No Problems Problem Type SNOMED Code ICD Code Onset Dates Problem Status W/U Status Risk Notes Problem Postmenopausal atrophic vaginitis (10890035) Postmenopausal atrophic vaginitis (N95.2) Active confirmed Problem Age-related osteoporosis (824156031) Age-related osteoporosis without current pathological fracture (M81.0) Active confirmed Problem Atrophy of vulva (091927452) Atrophy of vulva (N90.5) Active confirmed Problem Irregular Menstruation (37865695) Other specified irregular menstruation (N92.5) Active confirmed Problem Abnormal vaginal bleeding (522712040) Other specified abnormal uterine and vaginal bleeding (N93.8) Active confirmed Problem Unspecified menopausal and perimenopausal disorder (N95.9) Active confirmed Vital Signs Temperature 97.7 degrees Fahrenheit 04/28/2024 Blood pressure diastolic 78 mm Hg 04/28/2024 Height 65.5 in 04/28/2024 Blood pressure systolic 110 mm Hg 04/28/2024 Weight 115 lbs 04/28/2024 BMI 18.84 kg/m2 04/28/2024 Encounters Encounter Location Date Provider Diagnosis [facility] [place] [address] [address] [address] 04/28/2024 Amanda Griffin Encounter for gynecological examination (general) (routine) without abnormal findings Z01.419 ; Encounter for screening mammogram for malignant neoplasm of breast Z12.31 ; Family history of malignant neoplasm of breast Z80.3 ; Postmenopausal atrophic vaginitis N95.2 and Age-related osteoporosis without current pathological fracture M81.0 [facility] [address] [address] 04/28/2024 Amanda Griffin Assessments Encounter Date Diagnosis (ICD Code) Assessment [...] REPEAT BMD IN 2024. Plan Of Treatment Pending Test Test Name Order Date Urinalysis 04/06/2019 Urinalysis 04/12/2021 25OH VITAMIN D 04/21/2023 COMPLETE BLOOD COUNT 04/21/2023 COMPREHENSIVE METABOLIC PANEL 04/21/2023 PTH, INTACT 04/21/2023 THIN PREP,HPV,MELVA IF HPV+ (>29YR)(DIAG) 04/09/2020 THIN PREP,HPV,MELVA IF HPV+ (>29YR)(SCRN) 03/11/2017 TSH 04/21/2023 BONE DENSITY 04/28/2024 BONE DENSITY 04/15/2022 MM Digital Mammo Screening 04/12/2021 MM Digital Mammo Screening 04/15/2022 MM Digital Mammo Screening 04/09/2020 MM Digital Mammo Screening 04/28/2024 MM Digital Mammo Screening 04/21/2023 Screening Bilateral Breast Ultrasound Screening Bilateral Breast Ultrasound Bilateral Breast MRI with/without contra st 04/12/2021 BILATERAL BREAST ULTRASOUND 04/09/2020 Next Appt Details Provider Name:Amanda Doan payal, 05/02/2025 10:20:00 AM, [address], [address], [place], [address], Insurance Providers Payer Name Payer Address Payer Phone Subscriber Number Group Number Insured Name Patient Relationship to Insured Coverage Start Date Coverage End Date [employer] [address] [place] [address] [id number] [id number] Spouse - patient is the spouse of the insured Medical (General) History Medical History History ICD Code Unspecified menopausal and perimenopausa l disorder N95.9 Other specified irregular menstruation N 92.5 Family history of malignant neoplasm of breast Z80.3 Inconclusive mammogram R92.2 Other specified abnormal uterine and vag inal bleeding N93.8 Polyp of corpus uteri N84.0 Diverticulitis of intestine, part unspecified, without perforation or abscess without bleeding K57.92 Atrophy of vulva N90.5 Other specified abnormal uterine and vag inal bleeding N93.8 Other specified irregular menstruation N 92.5 Postmenopausal atrophic vaginitis N95.2 Mammographic heterogeneous density, bila teral breasts R92.333 Surgical History Surgery Date(Month/Year) 08/1992 Hysteroscopy Polypectomy And D+C 05/2017 Colonoscopy Hospitalization History Reason Date(Month/Year) See Surgical Hx 2 Vaginal Deliveries - 1
--- OUTSIDE RECORDS SUMMARY | 2024-08-01 17:10 | XMS_ITS | Patient Health Record ---
Author Organization [facility] Address [address] [place] [address] Care Team Providers Care Nail Maker Name Role Phone Klaus JARAMILLO, Bryce Primary Care Provider Unavailab Gustavo Kumari Unavailable [phone] Allergies No Known Allergies Results Component Value Reference Range Notes Pathology (Not yet reviewed by provider) Interpretation: Performing Lab:[facility], [address] [place] [address] Notes/Report: Name: Erika Kent Age/Sex: 59/F : 1965 Unit#: [id number] Attend Dr: Gustavo Dominguez MD Re04/13/24 Status : [facility] Location: [facility] Disch: SPEC : [id number] RECD : 04/13/24-1238 STATUS: GERMÁN NASSAR NUM: [id number] DOUG: 04/13/24-[address] [facility] [address]: Gustavo Dominguez MD ENTERED: 04/13/24-12 44 SP TYPE: Surgical OTHR DR: Bryce Enrique MD ORDERED: HE Stain/6, Gross Micro L4/2 Diagnosis A. Colon, cecal poly p: Tubular adenoma; negative for high grade dysplasia and carcinoma. B. Colon, ascending polyps: Tubular adenomas (3 pieces); negative for high grade dysplasia and carcinoma. Clinical History Pre-Op Dx: Encounter for screening for malignant neoplasm of colon Post-Op Dx: Polyps, hemorrhoids, diverticulosis Microscopic Description Microscopic sections reviewed. Material Received A. Cecal polyp B. Ascending colon polyps Gross Description Received in two parts. Part A: Received in formalin labeled ?cecal polyp? is a 0.35 cm turner papular tissue fragment, submitted in toto in a cassette labeled A. Part B: Received in formalin labeled ?ascending colon polyps? are 3 turner and turner-pink papular and rectangu lar tissue fragments ranging 0.3-0.6 cm, submitted in toto in a cassette labeled B. CEDS Copies To: Bryce Enrique MD [facility] [address] [place] [address] CONTINUED ON NEXT PAGE Name: Abbie Norman Erika A Age/Sex: 59/F : 1965 Unit#: [id number] Attend Dr: Gustavo Dominguez MD Re04/13/24 Status : [facility] Location: [facility] Disch: SPEC : [id number] RECD : 04/13/24 STATUS: GERMÁN NASSAR NUM: [id number] DOUG: 04/13/24-[address] [facility] [address]: Gustavo Dominguez MD ENTERED: 04/13/24-12 44 SP TYPE: Surgical OTHR DR: Bryce Enrique MD ORDERED: BRIAN Stain/6, Gross Micro L4/2 Copies To: (Continued) Gustavo Dominguez MD [address] [place] [address] Signed (si gnature on file) Mojgan Mccoy 04/14/24 1202 END OF REPORT Reason For Referral No Information Immunizations Vaccine Route Administration Date Status Comme nts Influenza Unknown 04/24/2018 Administered Social History Tobacco Use: Social History Observation Description Date Details (start date - stop date) Never Smoker NA - NA Tobacco Use/Smoking Question Answer Notes Patient is a nonsmoker Alcohol Screen Question Answer Notes Did you have a drink contain ing alcohol in the past year? Yes How often did you have a dri nk containing alcohol in the past year? 2 to 3 times a week (3 points) How many drinks did you have on a typical day when you were drinking in the past year? 1 or 2 drinks (0 point) How often did you have 6 or more drinks on one occasion in the past year? Never (0 point) Points 3 Interpretation Positive Section Notes: Nonsmoker; no sig alcohol Nonsmoker; no sig alcohol Problems Problem Type SNOMED Code ICD Code Onset Dates Problem Status W/U Status Risk Notes Problem Colon cancer screening (734162159) Colon cancer screening (Z12.11) Active confirmed Problem 599992863 Encounter for screening for malignant neoplasm of colon (Z12.11) Active confirmed Problem Diverticular disease of colon (702986748) Diverticulosis of large intestine without perforation or abscess without bleeding (K57.30) Active confirmed Problem 260132417640084 Preprocedural examination (Z01.818) Active confirmed Problem Chronic constipation (482467244) Chronic constipation (K59.09) Active confirmed Vital Signs Blood pressure diastolic 00 mm Hg 01/06/2024 Height 66 in 01/06/2024 Blood pressure systolic 00 mm Hg 01/06/2024 Weight 114 lbs 01/06/2024 BMI 18.40 kg/m2 01/06/2024 Encounters Encounter Location Date Provider Diagnosis [facility] [address] [place], [place] [id number] 04/13/2024 Gustavo Dominguez Colon cancer screeni ng Z12.11 ; Colon polyps K63.5 ; Diverticulosis of large intestine without perforation or abscess without bleeding K57.30 and Other hemorrhoids K64.8 [facility] [address] [place] [address] 01/06/2024 Gustavo Dominguez Chronic constipation K59.09 and Colon cancer screening Z12.11 Assessments Encounter Date Diagnosis (ICD Code) Assessment Notes Treatment Notes Treatment Clinical Notes Section Notes 04/13/2024 Colon cancer screening (ICD-10 - Z12.11) 04/13/2024 Colon polyps (ICD-10 - K63.5) 01/06/2024 Colon cancer screening (ICD-10 - Z12.11) Overall, Erika appears quite well. Her baseline constipation does not seem particularly problematic for her from a symptomatic standpoint. However, I did recommend that she try adding some daily Metamucil with a lot of fluids and/or some MiraLax daily to see if that might help improve the frequency of her bowel movements. Other than that I don't think she needs any further intervention nor further workup in this regard. Given the limited colonoscopy in 2019, I did recommend a followup colonoscopy for further screening with a 2 day preparation to hopefully allow for a better cleanout and visualization of the colon. We did review the rationale for this in regard to colon cancer prevention. Full consent was obtained for this, including risks of bleeding and perforation. The procedure will be done with monitored anesthesia care. Erika was comfortable with this plan. Thank you again for allowing me to participate in Erika's care. I shall continue to keep you advised of her progress. 01/06/2024 Chronic constipation (ICD-10 - K59.09) Try taking 2 Metamucil pills or capsules with a lot of water daily Try some Miralax every day Overall, Erika appears quite well. Her baseline constipation does not seem particularly problematic for her from a symptomatic standpoint. However, I did recommend that she try adding some daily Metamucil with a lot of fluids and/or some MiraLax daily to see if that might help improve the frequency of her bowel movements. Other than that I don't think she needs any further intervention nor further workup in this regard. Given the limited colonoscopy in 2019, I did recommend a followup colonoscopy for further screening with a 2 day preparation to hopefully allow for a better cleanout and visualization of the colon. We did review the rationale for this in regard to colon cancer prevention. Full consent was obtained for this, including risks of bleeding and perforation. The procedure will be done with monitored anesthesia care. Erika was comfortable with this plan. Thank you again for allowing me to participate in Erika's care. I shall continue to keep you advised of her progress. 04/13/2024 Diverticulosis of large intestine without perforation or abscess without bleeding (ICD-10 - K57.30) 04/13/2024 Other hemorrhoids (ICD-10 - K64.8) Plan Of Treatment Pending Test Test Name Order Date Pathology 04/13/2024 Future Test Test Name Order Date COLONOSCOPY 05/27/2018 COLONOSCOPY 01/06/2024 Insurance Providers Payer Name Payer Address Payer Phone Subscriber Number Group Number Insured Name Patient Relationship to Insured Coverage Start Date Coverage End Date [facility] [address] [place], [place] [id number] ERIKA KENT Self - patient is the insured Medical (General) History Medical History History ICD Code Denies GA,DM,CVA,Lung disease,renal dise ase Negative screening colonosco py in July of 2018 but this was limited due to a somewhat poor prep Surgical History Surgery Date(Month/Year) 1992 D&C, Fibroids 06/2017
--- OUTSIDE RECORDS SUMMARY | 2024-08-01 17:10 | XMS_ITS ---
Author Organization [facility] Address [address] [place] [address] Care Team Providers Care Valet Manager Name Role Phone MELISSA QUEEN M.D. Primary Care Provider Amanda Galeano Unavailable [phone] REASON FOR VISIT MAMMO REQ 2023 Encounters Encounter Location Date Provider Diagnosis [facility] [address] [place] [address] 04/28/2024 Amanda Griffin Plan Of Treatment Next Appt Details Provider Name:Amanda moe, 05/02/2025 10:20:00 AM, [address] [place] [address], [facility] [address], [place], [address], Progress Notes * DONNA NORTONIDOB:[birth year] (59 yo F)Acc No.[id number]:04/28/2024 Patient:?EDNA NORTON :1965???Age:59 Y???Sex:Female Address:[address] [place] [address], [address] * true * Date:? Generated for Romana smith/Niurka/eTransmitting on:?08/01/2024 05:10 PM EDT
--- OUTSIDE RECORDS SUMMARY | 2024-08-01 17:11 | XMS_ITS ---
Author Organization [facility] Address [address] [place] [address] Care Team Providers Care Lining Repairer Name Role Phone Klaus JARAMILLO, Bryce Primary Care Provider Gustavo Khan Unavailable [phone] Allergies No Known Allergies REASON FOR VISIT Patient presents today for a colon screening Social History Tobacco Use: Social History Observation [...] Positive Section Notes: Nonsmoker; no sig alcohol Problems Problem Type SNOMED Code ICD Code Onset Dates Problem Status W/U Status Risk Notes Problem Chronic constipation (155550894) Chronic constipation (K59.09) Active confirmed Problem Colon cancer screening (014577624) Colon cancer screening (Z12.11) Active confirmed Vital Signs Blood pressure systolic 00 mm Hg 01/06/20 24 Blood pressure diastolic 00 mm Hg 024 Height 66 in 01/06/2024 Weight 114 lbs 01/06/2024 BMI 18.40 kg/m2 01/06/2024 Encounters Encounter Location Date Provider Diagnosis [facility] [address] [place] [address] 01/06/2024 Gustavo Dominguez Chronic constipation K59.09 and Colon cancer screening Z12.11 Assessments Encounter Date Diagnosis (ICD Code) Assessment Notes Treatment Notes Treatment Clinical Notes Section Notes 01/06/2024 Chronic constipation (ICD-10 - K59.09) Try [...] keep you advised of her progress. 01/06/2024 Colon cancer screening (ICD-10 - Z12.11) [...] to keep you advised of her progress. Plan Of Treatment Treatment Notes Assessment Notes Chronic constipation Try taking 2 Metamucil pills or capsules with a lot of water daily Try some Miralax every day Future Test Test Name Order Date COLONOSCOPY 01/06/2024 Next Appt Details Follow Up: prn, Reason: Progress Notes * DONNA NORTONIDOB:[birth year] (58 yo F)Acc No.[id number]:01/06/2024 Progress Notes Patient:?ERIKA NORTON Provider:?Gustavo Dominguez MD :1965???Age:58 Y???Sex:Female D ate:01/06/2024 Address:[address] [place], [place] [id number] Pcp:Bryce Enrique MD Subjective: * Chief Complaints: * ???Patient presents today fo r a colon screening * HPI: ???incontinence:? I saw Erika in consultation today in regard to further evaluation of her chronic constipation and discussion of colorectal cancer screening. ?I last saw Erika in July of 2018, which time she underwent a negative screening colonoscopy. However, the prep on the day was limited due to some residual stool and liquid. She currently feels well. She does have a baseline bowel movement pattern of a formed stool every fourth or fifth day. She does need an occasional laxative but uses that infrequently. She has not noticed any sign of hematochezia nor melena. She denies any particular issues with abdominal pain, unintentional weight loss, significant abdominal bloating or distention, flatulence, nausea, nor vomiting. She enjoys a good appetite, without any significant heartburn or dysphagia. She denies any signs of jaundice. She denies any known family history of colon cancer. * ROS:?General/Constitutional:?Change in appetite?denies.?Chills?denies.?Fatigue?denies.?Ophthalmologic:?Comments?all negative.?ENT:?Comments?all negative.?Respiratory:?hemoptysis?denies.?Cough?denies.?Cardiovascular:?Chest pain?denies.?Orthopnea?denies.?Gastrointestinal:?Comments?See HPI for details.?Genitourinary:?Hematuria?denies.?Dysuria?denies.?Musculoskeletal:?Painful joints?denies.?Weakness?denies.?Skin:?Itching?denies.?Rash?denies.?Neurologic:?Headache?denies.?Seizures?denies.?Psychiatric:?Comments?all negative.? * Medical History:? * Surgical History:? &C, Fibroids 06/2017 * Hospitalization/Major Diagno stic Procedure:?No Hospitalization History. * Family History:?Father: dece ased, PROSTATE CANCER/father 2021, diagnosed with HTN (hypertension).?Mother: alive, diagnosed with HTN (hypertension).? Hx of breast cancer mother, maternal GM, and 2 maternal aunts. * Social History:?Tobacco Use:?Tobacco Use/Smoking?Patient is a?nonsmoker.?Drugs/Alcohol:?Alcohol Screen?Did you have a drink containing alcohol in the past year??Yes,?How often did you have a drink containing alcohol in the past year??2 to 3 times a week (3 points),?How many drinks did you have on a typical day when you were drinking in the past year??1 or 2 drinks (0 point),?How often did you have 6 or more drinks on one occasion in the past year??Never (0 point),?Points?3,?Interpretation?Positive.?Miscellaneous:?Marital status: . 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 ???Nonsmoker; no sig alcohol. * Medications:?None * Allergies:?N.K.D.A.yes[Aller gies Verified] Objective: * Vitals:?Wt: 114 lbs, Ht: 66 in, BMI:18.40 Index, BP: 00/00 mm Hg. * Examination: ???General Examination: ?GENERAL APPEARANCE:?pleasant, well nourished, well developed, in no acute distress.?EYES:?sclera non-icteric.?ORAL CAVITY:?mucosa moist.?NECK/THYROID:?no cervical lymphadenopathy, neck supple.?SKIN:?nonjaundiced, no spider angiomata.?HEART:?S1, S2 normal.?LUNGS:?clear to auscultation bilaterally.?ABDOMEN:?normal bowel sounds, no guarding or rigidity, no guarding or rigidity, no masses palpable, soft, nontender, nondistended.?EXTREMITIES:?no edema.?NEUROLOGIC:?alert and oriented.? Assessment: * Assessment: 1.?Chronic constipation - K5 9.09 (Primary)?2.?Colon cancer screening - Z12.11? Overall, Erika appears quite well. Her baseline [...] to keep you advised of her progress. Plan: * Treatment: 2.?Colon cancer screening?Procedure: COLONOSCOPY (Ordered for 01/06/2024) * Procedure Codes:?3017F COLOR ECTAL CA SCREEN DOC [id number] TOBACCO NON-[id number] BP SCR NOT PRFRM REC REASON NOS * Follow Up:?prn * * Sign off status: Completed true * Provider:?Gustavo Dominguez MD Date:? 024 Generated for Romana ng/Niurka/eTransmitting on:?08/01/2024 05:10 PM EDT History and Physical Notes * HPI (History of Present Illness) Category Sub-Category Detail Notes Category Not es incontinence I saw Erika in consultation today in regard to further evaluation of her chronic constipation and discussion of colorectal cancer screening. I last saw Erika in July of 2018, which time she underwent a negative screening colonoscopy. However, the prep on the day was limited due to some residual stool and liquid. She currently feels well. She does have a baseline bowel movement pattern of a formed stool every fourth or fifth day. She does need an occasional laxative but uses that infrequently. She has not noticed any sign of hematochezia nor melena. She denies any particular issues with abdominal pain, unintentional weight loss, significant abdominal bloating or distention, flatulence, nausea, nor vomiting. She enjoys a good appetite, without any significant heartburn or dysphagia. She denies any signs of jaundice. She denies any known family history of colon cancer. Examination Category Sub-Category Detail Notes Category Not es General Examination GENERAL APPEARANCE: pleasant , well nourished, well developed, in no acute distress HEAD: EYES: sclera non-icteric EARS: NOSE: THROAT: NECK/THYROID: no cervical lymphade nopathy, neck supple HEART: S1, S2 normal CHEST: LUNGS: clear to auscultatio n bilaterally ABDOMEN: normal bowel sounds, no guarding or rigidity, no guarding or rigidity, no masses palpable, soft, nontender, nondistended NEUROLOGIC: alert and oriented SKIN: nonjaundiced, no spi olga angiomata EXTREMITIES: no edema PERIPHERAL PULSES: BACK: BREASTS: MUSCULOSKELETAL: MALE GENITOURINARY: LYMPH NODES: RECTAL EXAM: FEMALE GENITOURINARY: ORAL CAVITY: mucosa moist
== END 2024-08-01 14:59 | disposition home or self-care (01) ==
LOC: HO.HMGCX 14:58
PROVIDERS: PCP Internal Medicine; Visit Provider Internal Medicine
DX: M54.50 Low back pain, unspecified (principal); R10.9 Unspecified abdominal pain; M79.604 Pain in right leg; M79.605 Pain in left leg
CPT/HCPCS: 72100; 72170

== ENCOUNTER → 2024-08-01 15:05 | Outpatient (BNV) | payer BC, SELFPAY | PROVIDERS: PCP Internal Medicine; Visit Provider Radiology Diagnostic Radiology | DX: M51.360 Other intervertebral disc degeneration, lumbar region with discogenic back pain only (principal); R10.2 Pelvic and perineal pain; M54.50 Low back pain, unspecified | CPT/HCPCS: 72100; 72170 ==

== ENCOUNTER 2024-09-16 08:30 | Outpatient (REF) | payer BC, SELFPAY ==
--- OUTSIDE RECORDS SUMMARY | 2024-09-16 08:36 | XMS_ITS ---
Author Organization [facility] Address [address] [address] Care Team Providers Care Case Packer Name Role Phone MELISSA QUEEN M.D. Primary Care Provider Unavail Amanda Rodriguez Unavailable [phone] Allergies No Known Allergies REASON FOR VISIT [...] 05/21/2023 Encounters Encounter Location Date Provider Diagnosis [facility] [address] 05/21/2023 Amanda Griffin Age-related osteoporosis without current [...] Reason: Provider Name:Amanda moe, 05/02/2025 10:20:00 AM, [address] [place] [address], [facility] [address], [place], [address], Progress Notes * MARCELL NORTONB:[birth year]01 (58 yo F)Acc No.[id number]:05/21/2023 PROGRESS NOTES Patient:?EDNA NORTON Appointment Provider:?Amanda moe M.D. :1965???Age:58 Y???Sex:Female D ate:05/21/2023 Address:[address] [place], [place] [id number] Pcp:MELISSA QUEEN M.D. Subjective: * Chief Complaints: [...] stool.?no?genitourinary complaints.?no?skin complaints.? * Medical History:? 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 * OB [...] Provider:?Amanda Griffin M.D. Date:?05/21/2023 Generated for Romana smith/Niurka/Rufusitting on:?09/16/2024 08:36 AM EDT History and Physical Notes * HPI [...]
--- OUTSIDE RECORDS SUMMARY | 2024-09-16 08:36 | XMS_ITS ---
Author Organization [employer] [facility] Address [address] [place] [address] Care Team Providers Care Coffee Machine Technician Name Role Phone MELISSA QUEEN M.D. 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 :1965???Age:59 Y???Sex:Female D ate:04/28/2024 Address:[address] [place], [place] [id number] Pcp:MELISSA QUEEN M.D. Subjective: * Chief Complaints: * ???Annual SUPERVISOR BRAKE REPAIR PhysicalAnnual SUPERVISOR BRAKE REPAIR Physical 50-59* * HPI: ???New/Follow-up Patient Consult:? [...] adequate calcium via diet and supplementation ?Significant SUPERVISOR BRAKE REPAIR problems:?no significant equity research analyst symptoms or problems * ROS:?general:?no?chest pain.?no?palpitations.?no?headache.?no?cough.?no?shortness of breath.?no?fever.?no?unexplained weight loss.?no?nausea/vomiting.?no?change in bowel movements.?no blood in stool.?no?genitourinary complaints.?no?skin complaints.? * Medical History:? * Tin Dipper History:?/ Para?07/25.?Sexual activity?currently sexually active.?Last Pap Smear:?04/09/20 [...] and menses?06/2018 after surgery.?History of STD's:?none.? Control:?vasectomy.?Colonoscopy?03/2024 [facility],06/2018.?Bone Density:?03/12/23.?SUPERVISOR BRAKE REPAIR HISTORY MISC.?Lauro Jose = 41.6%.? * OB [...] status: . ?Natural support system: yes. 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 ?Sexually active: yes, monogamous relationship. * [...] * Images: Billing Information: * Visit Code:? 58552 Preventive Care New Pt. Age 40-64. 62706 Preventive Care Est Pt. Age 40-64. * Procedure Codes:? * Sign off status: Completed Addendum: * ? true * Appointment Provider:?Amanda Griffin M.D. Date:?04/28/2024 Generated for Romana smith/Niurka/eTlouisesmitting on:?09/16/2024 08:36 AM EDT History and Physical Notes * HPI (History of Present Illness) Category Sub-Category Detail Notes Category Not es New/Follow-up Patient Consult PAT ENTERED MENOPAUSE IN 2018. SHE USES ESTRADIOL CREAM FOR ATROPHIC VAGINITIS [...] SHEHAD COLONOSCOPIES DONE IN 2018 AND 2023. [employer] X 3. Annual General Health Maintenance: Current breast complaints:: no breast pain, mass, discharge, or skin changes Urinary problems:: patient r eports no urinary health problems or bowel health problems Calcium intake:: takes adequ ate calcium via diet and supplementation Significant SUPERVISOR BRAKE REPAIR problems:: n o significant equity research analyst symptoms or problems Examination Category Sub-Category Detail Notes Category Not es General Exam CONSTITUTIONAL: General Appearan ce:: alert, in no acute distress, normal, well nourished NECK/THYROID: Inspection/Palpation:: normal Thyroid:: normal size and shape RESPIRATORY: Auscultation: clear to auscultation bilaterally, Respiratory Effort: normal CARDIOVASCULAR: Auscultation: regula r rate and rhythm GASTROINTESTINAL: Abdomen:: no masses, nontender , nondistended Liver and Spleen:: normal Hernias:: no hernias present, no inguina l adenopathy MUSCULOSKELETAL: Inspection/Palpation:: no clubb ing, cyanosis, or edema SKIN: Skin:: normal NEURO/PSYCH: Orientation:: time , place, pers on Mood/Affect:: normal BREAST, Right: Inspection/Palpation :: no discharge, no [...]
--- OUTSIDE RECORDS SUMMARY | 2024-09-16 08:36 | XMS_ITS | Clinical Summary ---
Author Organization [facility] Address [address] [place] [address] Phone Care Team Providers Care Donkey Ride Operator Name Role Phone Unavailable Primary Care Provider [...] Health Screening 04/22/2022 COVID-19 Vaccine ( - season) 2024 Influenza Vaccine (Season Ended) 2025 Breast Cancer Screening 03/17/2026 03/17/20 24, 03/12/2023, 03/03/2022, Additional history exists RSV Immunization Adult Patients (1 - 1-dose 75+ series) 02/02/2040 HIB [...] age to complete this topic Meningococcal B Vaccine Aged Out No l onger eligible based on patient's age to complete [...] Procedure Name Priority Date/Time Associated Diagnosis Comments [facility] SCREENING DIGITAL Routine 03/17/2024 11:02 AM EDT Encounter for screening mammogram for malignant neoplasm of breast from Last 3 Months or Most Recently Relevant to Health Maintenance Results * [facility] SCREENING DIGITAL (03/17/2024 11:02 AM EDT) Anatomical Region Laterality Modality Mammography 03/17/2024 9:29 AM EDT Narrative 03/17/2024 11:02 AM EDT [facility] Diagnostic Imaging Department [address] [place] [address] [id number] Patient: ??ERIKA KENT ?/Age/Sex: 1965 - 59 - F Unit#: ??[id number] ? Location/Status: ??SPDIMAM/REG CLI ? Mnemonic/Ordering Site: ??DIGSC/SPMAM Ordering Physician: ??AMANDA GRIFFIN MD [facility] Screening Digital - 03/17/24 - 0953 Report Status:Signed EXAM: [facility] Screening Digital EXAM DATE AND TIME: 03/17/2024 9:54 AM HISTORY: ??Annual screening COMPARISON: ??03/12/2023, 03/17/2023, 03/03/2022, 02/25/2021 and 02/22/2020 TECHNIQUE: Bilateral digital breast tomosynthesis was performed in the CC and MLO projections. Computer aided detection with Neronote 7.2-H and Gradient X 3D 3.1 was employed. TISSUE DENSITY: b. [...] Procedure Note Poncho Angel MD - 03/26/2024 [facility] Diagnostic Imaging Department [address] [place] [address] Patient: ERIKA KENT /Age/Sex: 1965 - 59 - F Unit#: [id number] Location/Status: SPDIMAM/REG CLI Mnemonic/Ordering Site: DIGVT/[facility] Ordering Physician: AMANDA GRIFFIN MD [facility] Screening Digital - 03/17/24 - 0953 Report Status:Signed EXAM: [facility] Screening Digital EXAM DATE AND TIME: 03/17/2024 9:54 AM HISTORY: Annual screening COMPARISON: 03/12/2023, 03/17/2023, 03/03/2022, 02/25/2021 and 02/22/2020 TECHNIQUE: Bilateral digital breast tomosynthesis was performed in the CCand MLO projections. Computer aided detection with Neronote 7.2-H andGradient X 3D 3.1 was employed. TISSUE DENSITY: b. [...]
--- OUTSIDE RECORDS SUMMARY | 2024-09-16 08:36 | XMS_ITS ---
Author Organization [facility] Address [address] [place] [address] Care Team Providers Care Consulting Systems Engineer Name Role Phone MELISSA QUEEN M.D. Primary Care Provider Amanda Galeano Unavailable [phone] REASON FOR VISIT MAMMO REQ 2023 Encounters Encounter Location Date Provider Diagnosis [facility] [address] [place] [address] 04/28/2024 Amanda Griffin Plan Of Treatment Next Appt Details Provider Name:Amanda moe, 05/02/2025 10:20:00 AM, [address] [place] [address], [facility] [address], [place], [address], Progress Notes * DONNA NORTONIDOB:[birth year] (59 yo F)Acc No.[id number]:04/28/2024 Patient:?EDNA NORTON :1965???Age:59 Y???Sex:Female Address:[address] [place] [address], [address] * true * Date:? Generated for Romana smith/Niurka/eTransmitting on:?09/16/2024 08:36 AM EDT
--- OUTSIDE RECORDS SUMMARY | 2024-09-16 08:36 | XMS_ITS | Patient Health Record ---
Author Organization [facility] Address [address] [facility] [facility] [address] [place] [address] Care Team Providers Care Cotton Inspector Name Role Phone MELISSA QUEEN M.D. Primary Care Provider Unavail able Amanda Griffin Unavailable [phone] Allergies No Known Allergies Results Component Value [...] Status Risk Notes Problem Postmenopausal atrophic vaginitis (30756151) Postmenopausal atrophic vaginitis (N95.2) Active confirmed Problem Age-related osteoporosis (285537826) Age-related osteoporosis without current pathological fracture (M81.0) Active confirmed Problem Atrophy of vulva (416310219) Atrophy of vulva (N90.5) Active confirmed Problem Irregular Menstruation (75410782) Other specified irregular menstruation (N92.5) Active confirmed Problem Abnormal vaginal bleeding (652867050) Other specified abnormal uterine and vaginal bleeding (N93.8) Active confirmed Problem Unspecified menopausal and perimenopausal disorder (N95.9) Active confirmed Vital Signs Temperature 97.7 degrees Fahrenheit 04/28/2024 Blood pressure diastolic 78 mm Hg 04/28/2024 Height 65.5 in 04/28/2024 Blood pressure systolic 110 mm Hg 04/28/2024 Weight 115 lbs 04/28/2024 BMI 18.84 kg/m2 04/28/2024 Encounters Encounter Location Date Provider Diagnosis [facility] [employer] [place] [address] [address] 04/28/2024 Amanda Griffin Encounter for gynecological examination (general) (routine) without abnormal findings Z01.419 ; Encounter for screening mammogram for malignant neoplasm of breast Z12.31 ; Family history of malignant neoplasm of breast Z80.3 ; Postmenopausal atrophic vaginitis N95.2 and Age-related osteoporosis without current pathological fracture M81.0 [facility] [employer] [facility] [employer] [address] [address] 04/28/2024 Amanda Griffin Assessments Encounter Date Diagnosis [...] Name:Amanda Doan payal, 05/02/2025 10:20:00 AM, [address], [address], [place], [address], Insurance Providers Payer Name Payer Address Payer Phone Subscriber Number Group Number Insured Name Patient Relationship to Insured Coverage Start Date Coverage End Date [employer] [place] [address] [place] [address] [id number] MAGED [id number] Spouse - patient is the [...]
[2024-09-16 10:12] LABS: MANUAL DIFF FLAG NO
[2024-09-16 10:18] LABS: Basophils Percent Auto 1.2 % (0-2); Eosinophils Absolute Auto 0.2 X10*3/uL (0.0-0.4); Eosinophils Percent Auto 4.8 % (0-4); Hematocrit 40.5 % (37.0-47.0); Hemoglobin 13.4 g/dl (12.0-16.0); Imm Gran Abs Auto 0.01 X10*3/uL (0.00-0.03); Imm Gran Pct Auto 0.3 % (0.0-0.4); Lymphocytes Absolute Auto 1.4 X10*3/uL (1.2-4.9); Mean Corpuscular HGB Conc 33.1 g/dl (31.0-35.0); Mean Corpuscular Hemoglobin 30.5 pg (27.0-33.0); Mean Corpuscular Volume 92.3 fL (80.0-98.0); Monocytes Absolute Auto 0.3 X10*3/uL (0.1-1.2); Monocytes Percent Auto 8.7 % (2-11); Neutrophils Absolute Auto 1.5 x10*3/uL (2.0-8.3); Platelet Count 297 X10*3/uL (160-400); Red Blood Count 4.39 X10*6/uL (4.20-5.50); Red Cell Distribution Width 12.9 % (11.0-16.0); White Blood Count 3.3 X10*3/uL (4.8-10.8)
[2024-09-16 10:53] LABS: Alanine Aminotransferase 27 U/L (0-31); Albumin Level 4.4 g/dL (3.5-5.0); Alkaline Phosphatase 82 U/L (39-117); Anion Gap 10 (12-20); Aspartate Amino Transferase 28 U/L (5-31); Bilirubin Total 1.6 mg/dL (0.0-1.0); Blood Urea Nitrogen 15 mg/dL (9-16); Calcium 9.1 mg/dL (8.4-10.2); Carbon Dioxide 25 mmol/L (22-29); Chloride 108 mmol/L (96-108); Cholesterol 196 mg/dL (<200); Estimated Glomerular Filt Rate > 60; Glucose Fasting 78 mg/dL (60-99); HDL Cholesterol 98 mg/dL (>40); LDL Cholesterol Calculated 91 mg/dL (<100); Potassium 4.2 mmol/L (3.3-5.1); Sodium 139 mmol/L (135-145); Total Protein 6.8 g/dL (6.5-8.0); Triglycerides 35 mg/dL (<150); Vitamin D 25-OH Total 37.2 ng/mL (>30)
== END 2024-09-16 08:31 | disposition home or self-care (01) ==
LOC: HO.HMGCLDS 08:30
PROVIDERS: PCP Internal Medicine; Visit Provider Internal Medicine
DX: Z00.00 Encounter for general adult medical examination without abnormal findings (principal); E78.5 Hyperlipidemia, unspecified; R53.83 Other fatigue
CPT/HCPCS: 36415; 80053; 80061; 82306; 85025

== ENCOUNTER 2025-03-28 13:42 | Outpatient (AMB) | payer BC, SELFPAY ==
--- OUTSIDE RECORDS SUMMARY | 2024-04-13 05:30 | XMS_ITS ---
Author Organization [facility] Address [address] [place] [phone] Care Team Providers Care Food And Drug Research Scientist Name Role Phone Klaus (RETIRED) Bryce JARAMILLO Primary Care Provider Unavailable Gustavo Dominguez Unavailable [phone] REASON FOR VISIT screening Problems Problem Type SNOMED Code ICD Code Onset Dates Problem Status W/U Status Risk Notes Problem Diverticular disease of colon (494126043) Diverticulosis of large intestine without perforation or abscess without bleeding (K57.30) Active confirmed Encounters Encounter Location Date Provider Diagnosis [facility] Outpatient [address] [place] [phone] 04/13/2024 Gustavo Dominguez Colon cancer scree karen Z12.11 ; Colon polyps K63.5 ; Diverticulosis of large intestine without perforation or abscess without bleeding K57.30 and Other hemorrhoids K64.8 Assessments Encounter Date Diagnosis (ICD Code) Assessment Notes Treatment Notes Treatment Clinical Notes Section Notes 04/13/2024 Colon cancer screening (ICD-10 - Z12.11) 04/13/2024 Colon polyps (ICD-10 - K63.5) 04/13/2024 Diverticulosis of large intestine without perforation or abscess without bleeding (ICD-10 - K57.30) 04/13/2024 Other hemorrhoids (ICD-10 - K64.8) Plan Of Treatment No Information Progress Notes * MARCELL NORTONB:02[birth year]01 (60 yo F)Acc No.[id number]:04/13/2024 COLON WITH MAC Patient: Konrad EDNA RUGGIERO Provider: Jess Dominguez MD :1965 A ge:59 Y S ex:Female Date:04/13/2024 Address:[address] [place] [address], [place] Pcp:Bryce Enrique (RETIRED) MD Subjective: * Chief Complaints: * 1 . Screening. * Medical History: Objective: * Vitals: Assessment: * Assessment: 1. C olon cancer screening - Z12.11 (Primary) 2 . C olon polyps - K63.5? 3. D iverticulosis of large intestine without perforation or abscess without bleeding - K57.30 4 . O ther hemorrhoids - K64.8 Plan: * Treatment: * Procedure Codes: 4 5385 LESION REMOVAL COLONOSCOPY, Modifiers: PT * * The named appointment provid er may or may not be the originator of this progress note, and it is not deemed complete until electronically signed by the appointment provider. Sign off status: Pending * Provider: Jess Dominguez MD Date: 06/13/2023 Generated for Romana smith/Niurka/eTransmitting on: 05/28/2024 04:50 PM EST
--- NOTE | 2025-03-28 13:49 | A.OFFPC_ITS ---
Vital Signs 03/28/25 14:00 Height 5 ft 6.14 in Weight 116 lb BMI 18.6 BP 97/55 L Blood Pressure Location Lt brachial Position Sitting Respiration 14 Pulse 82 Pulse Source Pulse Oximeter Temp 98.1 F Temp Source Temporal Artery Scan Pulse Oximetry (%) 99 Oxygen Delivery Method Room Air Intake Visit Reasons: Establish Care Drain Tile Machine Operator Required: No Accompanied by: Parent Allergies No Known Allergies (No Known Allergies*) Allergy (Verified 03/28/25 13:50) Tobacco use date assessed: 03/28/25 Dental Screening Dental Screen Date: 03/28/25 Did you have a dental visit in the last 12 months?: Yes Did you have a dental problem in the last 6 months where you did not have access to dental care?: No Was dental information given to patient?: Patient has dentist [facility] Medical History (Updated 03/28/25 @ 14:29 by Tai Loera MD) Hyperlipidemia No pertinent past medical history Surgical History History of surgery History of dilatation and curettage Hx of section H/O colonoscopy (~04/13/24) Social History (Updated 03/28/25 @ 14:03 by DICK Mckeon) Household Members: Spouse Housing: House Are you a primary animal care provider to a significant other at home: No Do you presently have visiting nurse or other home services: No Alcohol intake: current Alcohol intake frequency: holidays/special occasions only Patient Tobacco Use Status: Never used Tobacco service: No Current occupational status: unemployed Cognitive needs: No Hearing needs: No Vision needs: Yes (rx glasses) Questionnaire PHQ-9 Over the last 2 weeks, how often have you been bothered by any of the following problems? 1. Little interest or pleasure in doing things: not at all 2. Feeling down, depressed, or hopeless: not at all 3. Trouble falling or staying asleep, or sleeping too much: not at all 4. Feeling tired or having little energy: not at all 5. Poor appetite or overeating: not at all 6. Feeling bad about yourself - or that you are a failure or have let yourself or your family down: not at all 7. Trouble concentrating on things, such as reading the newspaper or watching television: not at all 8. Moving or speaking so slowly that other people could have noticed. Or the opposite - being so fidgety or restless that you have been moving around a lot more than usual: not at all 9. Thoughts that you would be better off or of hurting yourself in some way: not at all Total score: 0 Source: Developed by Drs. Gustavo Hamilton, Jyotsna Terry, Harley Marie and colleagues, with an educational chris from [employer]. Thrive Questionnaire Date Thrive assessed: 03/28/25 I am a: Patient What is your living situation today?: I have a steady place to live Within the past 12 months, did the food you bought not last and you didn't have the money to get more?: Never true Within the past 12 months, did you worry whether your food would run out before you got money to buy more?: Never true Do you have trouble paying for medicines?: No Do you have trouble getting transportation to medical appointments?: No Do you have trouble paying your heating and electricity bill?: No Do you have trouble taking care of your child, family member or friend?: No Do you have trouble with day-to-day activities such as bathing, preparing meals, shopping, managing finances, etc.?: No Are you currently unemployed and looking for a job?: No Are you interested in more education?: No Please select the resources that you would like help with: None THRIVE Score: 0 AUDIT C Alcohol Use Questionnaire (AUDIT-C) 1. How often do you have a drink containing alcohol?: Monthly or less 2. How many drinks containing alcohol do you have on a typical day when you are drinking?: 1 or 2 3. How often do you have six or more drinks on one occasion?: Never Total Score: 1 LUIS M-7 AMB Questionnaire LUIS M-7 Date LUIS M - 7 assessed: 03/28/25 Feeling nervous, anxious, or on edge: 0 = Not at all Not being able to stop or control worryin = Not at all Worrying too much about different things: 0 = Not at all Trouble relaxin = Not at all Being so restless that it is hard to sit still: 0 = Not at all Becoming easily annoyed or irritable: 0 = Not at all Feeling afraid as if something awful might happen: 0 = Not at all Total LUIS M-7 score (0-4 normal; 5-9 mild; 10-14 moderate; 15-21 severe): 0 Source: Developed by Drs. Gustavo Hamilton, Jyotsna Terry, Harley Marie and colleagues, with an educational chris from [employer]. Physical exam (Primary Care) Vital Signs: Last Vital Signs Temp 98.1 F 03/28/25 14:00 Pulse 82 03/28/25 14:00 Resp 14 03/28/25 14:00 BP 97/55 L 03/28/25 14:00 Pulse Ox 99 03/28/25 14:00 Oxygen Delivery Method Room Air 03/28/25 14:00 BMI result Body Mass Index 18.6 Tobacco/Smoking Status: Tobacco use Status Tobacco use date assessed 03/28/25 03/28/25 13:51 Patient Tobacco Use Status Never used Tobacco 03/28/25 14:03 PHQ-9: PHQ-9 Score PHQ-9: Total score 0 03/28/25 14:04 Thrive Assessment: Date of Thrive Assessment Date Thrive assessed 03/28/25 03/28/25 13:51 Office Procedures Flu Questionnaire Does the patient have a severe egg allergy?: No Does the patient have severe life threatening allergies?: No Does the patient have a fever or illness today?: No Has the patient ever had Guillain-Belgrade Syndrome?: No Has the patient ever had any past reaction to a flu shot?: No Immunizations Fluarix [id number] (PF) 45 mcg (15 mcg x 3)/0.5 mL IM syringe Performing Provider: Tai Loera MD [facility] [place] [facility] Administered by: DICK Mckeon on 03/28/25 14:04 Dose Route Admin Location Dispensed Lot Number Expiration Date [facility] Director Of Field Coordination 0.5 mL IM Left Deltoid 0.5 mL [id number] 11/21/25 [id number] [employer] VIS Given Date VIS Provided VIS Publication Date 03/28/25 Single Vaccine 24 Eligibility Eligibility Date Funding Source Not [facility] Eligible 03/28/25 Private Coding Level of Care Code Est Pt Level 4 (74623) Complex EM visit Add On G2211 Diagnoses Hyperlipidemia E78.5 Assessment & Plan Assessment & Plan (1) Hyperlipidemia: Code(s): E78.5 - Hyperlipidemia, unspecified Category: Medical Plan: History of Present Illness - The patient is a 60-year-old female [facility] and for routine health maintenance. - The patient has a history of osteoporosis, diagnosed about a year ago following a DEXA scan, and she was started on weekly alendronate at that time. 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 - Her last colonoscopy was performed one year ago in February. - The patient states she usually gets a mammogram in February but forgot this past year. - Recent blood work from August of this year showed all results were within normal limits. - She has a family history of breast cancer and her father had prostate cancer. - The patient is currently taking weekly alendronate and supplemental calcium gummies. 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 - She has three adult children. - She is physically active, using a Pel[employer] and playing pickleball at least three times per week each. Review of Systems - Constitutional: Denies any specific health concerns. - Skin: Reports a lesion on her pinky finger which is sometimes bothersome. - Eyes: Reports good vision, drives at night. Denies seeing halos. - Ears: Reports good hearing. - Genitourinary: Denies urinary incontinence. Physical Exam General: Cooperative and healthy appearing Nutritional Appearance: Well nourished Orientation/consciousness: Patient oriented x3 Limitations: No limitations Head: Normal to inspection General: Appearance normal, both eyes and all related structures Neck: Normal visual inspection Chest: Normal palpation of entire chest wall Respiratory: N ormal respiratory effort Neurology: Patient oriented x3, history of Guillain-Belgrade syndrome Results - Labs: Blood work from August of the current year was reviewed and noted to be completely within range. - Imaging: Last DEXA scan was approximately 2 years ago and showed osteoporosis. - Procedures: Last colonoscopy was one year ago. Plan - A prescription for alendronate was refilled and sent to the patient's [facility] pharmacy. - A repeat DEXA scan for osteoporosis will be deferred for now. - The wart on her pinky finger can be left alone, but quep-wle-wfvrzhx treatments were recommended if it becomes bothersome. - An order for a mammogram was placed. - Routine fasting blood work was ordered, to be checked twice a year. - A prescription for the shingles vaccine will be sent to the pharmacy for the patient to fill. - The flu shot will be withheld due to the patient's history of Guillain-Clark? syndrome. Discussion Notes This was a new patient visit to establish care. I discussed her osteoporosis, refilled her alendronate, and we agreed to defer a repeat bone density scan for now. I advised the patient to get the shingles vaccine and explained I would send the prescription to her pharmacy, as we do not keep it in the office. We also noted her contraindication to the flu shot due to a history of Guillain-Clark? syndrome. I identified a lesion on her pinky as a wart and suggested akrf-qzg-noeyekf treatment if it becomes bothersome. I placed orders for a mammogram and routine fasting blood work. Finally, I explained the office workflow, clarifying that for urgent needs on days I am not in the office, she can be seen by the physician fleet administrative assistant for same-day appointments, and for non-urgent questions, she should use the patient portal. Patient Instructions - I have sent a refill for your alendronate prescription to your [facility] pharmacy. - Please get the shingles vaccine; I have sent a prescription for it to your pharmacy as we do not keep it in the office. - Do not get a flu shot due to your history of Guillain-Clark? syndrome. - The growth on your pinky is a wart; you can use jbhm-ojg-oghsuqp treatments if it bothers you. - An order for your mammogram has been placed. Please schedule this appointment. - I have placed an order for blood work. Please go to the lab without eating or drinking after midnight the night before your test. - For urgent issues like a cold or cough, please go to an urgent care clinic. For other problems, call our office, and you can be seen by the physician fleet administrative assistant, who is here Thursday through Thursday. Orders: Orders Influenza [id number] Immunization Today Z23 - Encounter for immunization Basic Metabolic Panel Today E78.5 - Hyperlipidemia, unspecified Complete Blood Count no Diff Today E78.5 - Hyperlipidemia, unspecified Lipid Panel Today E78.5 - Hyperlipidemia, unspecified Liver Panel Today E78.5 - Hyperlipidemia, unspecified UA and rflx microscopic Today E78.5 - Hyperlipidemia, unspecified MM screening mammo BI Today Z12.31 - Encounter for screening mammogram for malignant neoplasm of breast Thyroid Stimulating Hormone Today E78.5 - Hyperlipidemia, unspecified Medications: New varicella-zoster gE vac,2 of 2 (Shingrix gE Antigen Component) 0.5 mL IM ONCE 1 ea 0RF Refilled alendronate 70 mg PO QWEEK 13 tabs 3RF 90 days
[2025-03-28 14:00] VITALS: BP 97/55; PULSE 82; RESP 14; TEMP 36.7; O2SAT 99; BMI 18.6
--- OUTSIDE RECORDS SUMMARY | 2025-03-28 16:51 | XMS_ITS | Clinical Summary ---
Author Organization [facility] Address [address] [place] [address] Phone Care Team Providers Care Legal Instruments Examiner Name Role Phone Tai Loera MD Primary Care Provider +1- [phone] Social History Tobacco Use Types Packs/Day Years Used Date Smoking Tobacco: Never Assessed Comments Unknown Sex and Gender Information Value Date Recorded Sex Assigned at Female 03/28/2025 3:31 PM EST Legal Sex Female 1:16 PM EST Gender Identity Female 03/28/2025 3:31 PM EST Sexual Orientation Not on file Plan of Treatment Upcoming Encounters Date Type Department Care Team (Late st Contact Info) Description 04/06/2025 8:45 AM EST [facility]ointment [facility] [address] [address] Health Maintenance Due Date Last Done Comments Colorectal Cancer Screening: Colonoscopy 1965 DTaP,Tdap,and Td Vaccines (1 - Tdap) 02/02/1984 Cervical Cancer Screening: Pap Smear 1986 Pneumococcal Vaccine: 50+ Years (1 of 1 - PCV) 2015 Zoster Vaccines (1 of 2) 2015 HIV Screening 04/22/2022 Hepatitis C Screening 04/22/2022 Social Influencers of Health Screening 04/22/2022 Depression Screening 05/25/2024 COVID-19 Vaccine ( season) 2025 Influenza Vaccine (#1) 2025 Breast Cancer Screening 03/17/2026 03/17/20, 03/12/2023, 03/03/2022, Additional history exists RSV Immunization [...] patient's age to complete this topic Hepatitis B Vaccines Aged Out No long er eligible [...] Procedure Name Priority Date/Time Associated Diagnosis Comments [facility] SCREENING DIGITAL Routine 03/17/2024 11:02 AM EDT Encounter for screening mammogram for malignant neoplasm of breast from Last 3 Months or Most Recently Relevant to Health Maintenance Results * CITLALY SCREENING DIGITAL (03/17/2024 11:02 AM EDT) Anatomical Region Laterality Modality Mammography 03/17/2024 9:29 AM EDT Narrative 03/17/2024 11:02 AM EDT [facility] Diagnostic Imaging Department [address] [place] [address] Patient: ERIKA KENT/Age/Sex: 1965 - 59 - F Unit#: [id number] Location/Status: SPDIMAM/REG CLI Mnemonic/Ordering Site: [facility] Ordering Physician: AMANDA GRIFFIN MD [facility] Screening Digital - 03/17/24 - 952 Report Status:Signed EXAM: [facility] Screening Digital EXAM DATE AND TIME: 03/17/2024 9:54 AM HISTORY: Annual screening COMPARISON: 03/12/2023, 03/17/2023, 03/03/2022, 02/25/2021 and 02/22/2020 TECHNIQUE: Bilateral digital breast tomosynthesis was performed in the CC and MLO projections. Computer aided detection with Red Aril 7.2-H and AudioEye 3D 3.1 was employed. TISSUE DENSITY: b. There are scattered areas of fibroglandular density. FINDINGS: No suspicious masses, grouped microcalcifications, or areas of architectural distortion are seen. The skin and vascularity are unremarkable. Stable biopsy marker in the right breast. IMPRESSION: Stable mammographic appearance of the breasts. No evidence of malignancy is seen. A negative mammogram in the presence of a clinically suspicious palpable abnormality does not preclude the possibility of malignancy or alter the indications for biopsy. BI-RADS: Category 2: Benign RECOMMENDATION(S): 1: Routine screening mammogram BILATERAL in 1 year. Dictating Physician: PONCHO ANGEL MD Electronically Signed by: PONCHO ANGEL MD Dic Date/Time: 03/17/24 1100 Sign date/Time: 03/17/24 1102 Procedure Note Poncho Angel MD - 03/26/2024 [facility] Diagnostic Imaging Department [address] [place] [address] Patient: ERIKA KENT /Age/Sex: 1965 - 59 - F Unit#: [id number] Location/Status: SPDIMAM/REG CLI Mnemonic/Ordering Site: [facility] Ordering Physician: AMANDA GRIFFIN MD [facility] Screening Digital - 03/17/24 - 0953 Report Status:Signed EXAM: [facility] Screening Digital EXAM DATE AND TIME: 03/17/2024 9:54 AM HISTORY: Annual screening COMPARISON: 03/12/2023, 03/17/2023, 03/03/2022, 02/25/2021 and 02/22/2020 TECHNIQUE: Bilateral digital breast tomosynthesis was performed in the CCand MLO projections. Computer aided detection with PayStandok 7.2-H and[employer]Tail Solutions AI 3D 3.1 was employed. TISSUE DENSITY: b. [...] Date/Time: 03/17/24 1100 Sign date/Time: 03/17/24 1102 Amanda Griffin MD IMG BI PROCEDURES Final Re sult from Last 3 Months or Most Recently Relevant to Health Maintenance [place] [address] [facility]) [place] [id number] Care Teams Legal Instruments Examiner Relationship Specialty Start Date End Date Tai Loera MD [facility] [address] [place] [address] [address] [place] [address] PCP - General Internal Medicine 03/28/25
--- OUTSIDE RECORDS SUMMARY | 2025-03-28 16:51 | XMS_ITS | Patient Health Record ---
Author Organization [facility] Address [address] [place] [address] Care Team Providers Care Online Community Manager Name Role Phone MELISSA QUEEN M.D. Primary Care Provider Unavail able Amanda Griffin Unavailable [phone] Allergies No Known Allergies Results Component Value Reference Range Notes Urinalysis Reviewed date:04/28/2024 01:53:24 PM Interpretation: Performing Lab: Notes/Report: Reason For Referral No Information Medications Medication SIG (Take, Route, Frequency, Duration) Notes Start Date End Date Status Estradiol Vaginal Cream 0.01% 1 Gram Vaginally Twice a Week; Duration: 90 Days 04/22/2022 Active Estradiol Vaginal Cream 0.01% 1 Gram to the affected area Vaginal/Vulva Twice a week; Duration: 90 Days 04/21/2023 Active Estradiol Vaginal Cream 0.01% 1 Gram to the affected area Vaginal/Vulva Twice a week; Duration: 90 Days 04/28/2024 Active Social History Tobacco [...] Status Risk Notes Problem Postmenopausal atrophic vaginitis (68030567) Postmenopausal atrophic vaginitis (N95.2) Active confirmed Problem Age-related osteoporosis (849679020) Age-related osteoporosis without current pathological fracture (M81.0) Active confirmed Problem Atrophy of vulva (285774660) Atrophy of vulva (N90.5) Active confirmed Problem Irregular Menstruation (49999188) Other specified irregular menstruation (N92.5) Active confirmed Problem Abnormal vaginal bleeding (788381026) Other specified abnormal uterine and vaginal bleeding (N93.8) Active confirmed Problem Unspecified menopausal and perimenopausal disorder (N95.9) Active confirmed Vital Signs Temperature 97.7 degrees Fahrenheit 04/28/2024 Blood pressure diastolic 78 mm Hg 04/28/2024 Height 65.5 in 04/28/2024 Blood pressure systolic 110 mm Hg 04/28/2024 Weight 115 lbs 04/28/2024 BMI 18.84 kg/m2 04/28/2024 Encounters Encounter Location Date Provider Diagnosis [facility] [place] [address] [address] 04/28/2024 Amanda Griffin Encounter for gynecological examination (general) (routine) without abnormal findings Z01.419 ; Encounter for screening mammogram for malignant neoplasm of breast Z12.31 ; Family history of malignant neoplasm of breast Z80.3 ; Postmenopausal atrophic vaginitis N95.2 and Age-related osteoporosis without current pathological fracture M81.0 [facility] [address] [address] [address] 04/28/2024 Amanda Griffin Assessments Encounter Date Diagnosis [...] Provider Name:Amanda Doan payal, 05/02/2025 10:20:00 AM, [address] [place] [address], [address], [place], [address], Insurance Providers Payer Name Payer Address Payer Phone Subscriber Number Group Number Insured Name Patient Relationship to Insured Coverage Start Date Coverage End Date [employer] [place] [address] [place] [address] [id number] MAGED MEJIA Spouse - patient is the [...]
--- OUTSIDE RECORDS SUMMARY | 2025-03-28 16:51 | XMS_ITS | Patient Health Record ---
Author Organization [facility] Address [address] [place] [address] Care Team Providers Care Airplane Navigator Name Role Phone Klaus (RETIRED) Bryce JARAMILLO Primary Care Provider Unavailable Gustavo Dominguez Unavailable [phone] Allergies No Known Allergies Results Component Value Reference Range Notes Pathology (Not yet reviewed by provider) Interpretation: Performing Lab:[facility], [address] [place] [phone] Notes/Report: Reason For Referral No Information Immunizations Vaccine [...] Status Risk Notes Problem Colon cancer screening (140704343) Colon cancer screening (Z12.11) Active confirmed Problem Screening for malignant neoplasm of colon (773176557) Encounter for screening for malignant neoplasm of colon (Z12.11) Active confirmed Problem Diverticular disease of colon (153483921) Diverticulosis of large intestine without perforation or abscess without bleeding (K57.30) Active confirmed Problem Preprocedural examination (082353255398199) Preprocedural examination (Z01.818) Active confirmed Problem Chronic constipation (590302016) Chronic constipation (K59.09) Active confirmed Encounters Encounter Location Date Provider Diagnosis [facility] Outpatient [address] [place] [phone] 04/13/2024 Gustavo Dominguez Colon cancer scree karen [...] Insured Coverage Start Date Coverage End Date [facility] [address] [place], [place] [phone] [id number] EDNA NORTON Self - patient is the insured Medical (General) History Medical History History ICD Code Denies NE,DM,CVA,Lung disease,renal dise ase Negative screening colonosco py in July of 2018 but this was limited due to a somewhat poor prep Surgical History Surgery Date(Month/Year) 1993 D&C, Fibroids 06/2017
--- OUTSIDE RECORDS SUMMARY | 2025-03-28 16:51 | XMS_ITS | Clinical Summary ---
Author Organization [facility] Address [address] [place] [address] Phone Care Team Providers Care Hospital Sales Representative Name Role Phone Pcp, Unknown Primary Care Provider Unavailabl e Social History Tobacco Use Types Packs/Day Years Used Date Smoking Tobacco: Never Assessed Education Answer Date Recorded Are you interested in more education? Not on garret e 08/29/2024 Are you concerned about learning? Not on file 08/29/2024 No 08/29/2024 No 08/29/2024 Digital Access Answer Date Recorded No 08/29/2024 No 08/29/2024 Reliable internet access at home? Not on file 08/29/2024 Device with a working camera? Not on file Comments Unknown Sex and Gender Information Value Date Recorded Sex Assigned at Not on file Legal Sex Female 1:24 PM EDT Gender Identity Not on file Sexual Orientation Not on file Plan of Treatment Upcoming Encounters Date Type Department Care Team (Late st Contact Info) Description 05/30/2025 8:00 AM EST Office Visit [facility] Medicine [address] [place] [address] Prasanth Diego MD [address] [place] [address], [address] [place] [address] Health Maintenance Due Date Last Done Comments Adult Td,Tdap Booster 1965 LIPID PANEL 1965 DEPRESSION SCREENING 1977 SMOKING Hx and SMOKELESS TOB ACCO SCREENING 1978 HEPATITIS C SCREENING 1983 HIV ONE-TIME SCREENING (18-6 5 YEARS) 1983 PAP SMEAR 1986 MAMMOGRAM 2005 COLOGUARD 2010 COLONOSCOPY 2010 COLORECTAL CANCER SCREENING 2010 FIT TEST 2010 FOBT 2010 SIGMOIDOSCOPY 2010 VIRTUAL COLONOSCOPY 2010 PNEUMOCOCCAL VACCINES (50+ y ears) (1 of 1 - PCV) 2015 ZOSTER VACCINES (1 of 2) 2015 INFLUENZA VACCINE (#1) 2024 COVID-19 VACCINE (1 - 2024-2 6 season) 2025 RSV VACCINE (1 - 1-dose 75+ series) 02/02/2040 HEPATITIS A VACCINES Aged Out No long er eligible based on patient's age to complete this topic HIB VACCINES Aged Out No longer eligi ble based on patient's age to complete this topic MENINGOCOCCAL VACCINES (ACWY) Aged Out No longer eligible based on patient's age to complete this topic MENINGOCOCCAL VACCINES (B) Aged Out N o longer eligible based on patient's age to complete this topic Medical Devices Not on file Insurance [facility] PPO Jac VINES [place], [place] BLUE [place]OSS OUT OF STATE PPO CANDY LEARY [place], [place] OUT [place] STATE PPO Jac SCHMITZ [place], [place] [employer] [place] OUT OF STATE PPO BLUE [place]OSS OUT OF STATE PPO [facility] SAM LEARY [place] [facility] OUT OF STATE PPO Member Subscriber Plan / Payer (Ef fective 2024-Present) Name:Erika Kent Relation to Subscriber:Unknown Name:JASVIR NORMAN (Home) Address: [address] [place], [place] [address] [address] Payer ID:[id number] (NA) Type:PPO Address: [address] [place] [id number] Care Teams Hospital Sales Representative Relationship Specialty Start Date End Date Pcp, Unknown PCP - General 08/29/24 Additional Source Comments The information contained in this document represents components of the legal health record. It is not the complete legal health record.[facility]
== END 2025-03-28 14:42 | disposition home or self-care (01) ==
LOC: HO.HMCSH 13:42
PROVIDERS: PCP Internal Medicine; Visit Provider Internal Medicine
DX: Z23 Encounter for immunization (principal); E78.5 Hyperlipidemia, unspecified

== ENCOUNTER → 2025-03-28 13:42 | Outpatient (BNVA) | payer BC, SELFPAY | PROVIDERS: PCP Internal Medicine; Visit Provider Internal Medicine | DX: M81.0 Age-related osteoporosis without current pathological fracture (principal); E78.5 Hyperlipidemia, unspecified; Z23 Encounter for immunization | CPT/HCPCS: 90471; 90656; 96127 ==

== ENCOUNTER 2025-04-07 08:46 | Outpatient (REF) | payer BC, SELFPAY ==
--- OUTSIDE RECORDS SUMMARY | 2024-04-13 05:30 | XMS_ITS ---
Author Organization [facility] Address [address] [place] [phone] Care Team Providers Care Court Recorder Name Role Phone Klaus (RETIRED) Bryce JARAMILLO Primary Care Provider Unavailable Gustavo Dominguez Unavailable [phone] REASON FOR VISIT screening Problems Problem Type SNOMED Code ICD Code Onset Dates Problem Status W/U Status Risk Notes Problem Diverticular disease of colon (503579467) Diverticulosis of large intestine without perforation or abscess without bleeding (K57.30) Active confirmed Encounters Encounter Location Date Provider Diagnosis [facility] Outpatient [address] [place] [phone] 04/13/2024 Gustavo Dominguez Colon cancer scree karen [...] Notes * MARCELL NORTONB:[birth year]01 (60 yo F)Acc No.[id number]:04/13/2024 COLON WITH MAC Patient: Konrad EDNA RUGGIERO Provider: Jess Dominguez MD :1965 A ge:59 Y S ex:Female Date:04/13/2024 Address:[address] [place] [address], [place], [id number] Pcp:Bryce Enrique (RETIRED) MD Subjective: * Chief [...] Date: 06/13/2023 Generated for Romana smith/Niurka/eTransmitting on: 06/07/2024 09:05 AM EST
--- OUTSIDE RECORDS SUMMARY | 2025-04-06 08:23 | XMS_ITS | Encounter Summary ---
Author Organization [facility] Address [address] [place] [address] Care Team Providers Care Business Analyst Manager Name Role Phone Tai Loera MD Primary Care Provider +1- [phone] Reason for Referral * Imaging (Routine) - Authorized Specialty Diagnoses / Procedures Referred By Contac t Referred To Contact Radiology Diagnoses Encounter for screening mammogram for breast cancer Procedures MG Mammo Digital Screening w Douglas bilat Spp[facility], Self Referral [facility] Referral ID Status Reason Start Date Expiration Date V isits Requested Visits Authorized [id number] Authorized 03/28/2025 03/28/2026 1 1 * Imaging (Routine) - Authorized Specialty Diagnoses / Procedures Referred By Contac t Referred To Contact Radiology Diagnoses Encounter for screening mammogram for breast cancer Procedures MG Mammo Digital Screening w Douglas bilat Spp[facility], Self Referral [facility] Referral ID Status Reason Start Date Expiration Date V isits Requested Visits Authorized [id number] Authorized 03/28/2025 03/28/2026 1 1 Reason for Visit * Imaging (Routine) - Authorized Specialty Diagnoses / Procedures Referred By Contac t Referred To Contact Radiology Diagnoses Encounter for screening mammogram for breast cancer Procedures MG Mammo Digital Screening w Douglas bilat Spp[facility], Self Referral [facility] Referral ID Status Reason Start Date Expiration Date V isits Requested Visits Authorized [id number] Authorized 03/28/2025 03/28/2026 1 1 Encounter Details Date Type Department Care Team (Latest Contact Info) Description 04/06/2025 8:23 AM EST - 04/06/2025 11:59 PM EST Hospital Encounter [facility] [address] [place] [phone] Encounter for screening mammogram for breast cancer Discharge Disposition: Home or Self Care Social History Tobacco Use Types Packs/Day Years Used Date Smoking Tobacco: Never Assessed Comments No Sex and Gender Information Value Date Recorded Sex Assigned at Female 03/28/2025 3:31 PM EST Legal Sex Female 1:16 PM EST Gender Identity Female 03/28/2025 3:31 PM EST Sexual Orientation Not on file documented as of this encounter Last Filed Vital Signs Vital Sign Reading Time Taken Comments Blood Pressure - - Pulse - - Temperature - - Respiratory Rate - - Oxygen Saturation - - Inhaled Oxygen Concentration - - Weight 52.2 kg (115 lb) 04/06/2025 8:38 AM EST Height 165.1 cm (5' 5 ) 04/06/2025 8:38 AM EST Body Mass Index 19.14 04/06/2025 8:38 AM EST documented in this encounter Discharge Disposition Disposition Code Departure Means Destination Home or Self Care documented in this encounter Plan of Treatment Not on file documented as of this encounter Procedures Procedure Name Priority Date/Time Associated Diagnosis Comments MG MAMMO DIGITAL SCREENING W DOUGLAS BILAT Routine 04/06/2025 8:43 AM EST Encounter for screening mammogram for breast cancer documented in this encounter Results * MG Mammo Digital Screening w Douglas bilat (04/06/2025 8:43 AM EST) Anatomical Region Laterality Modality Breast Bilateral Mammography 04/06/2025 9:15 AM EST Impressions 04/06/2025 11:12 AM EST Benign. BI-RADS CATEGORY: 2 - BENIGN RECOMMENDATION: Screening bilateral mammogram is recommended in 1 year. Mammo Location: [facility], [address] [place] [address], [address], . -------- FINAL REPORT -------- Dictated By: Yoni Almonte Dictated Date: 04/06/2025 09:15 ET Assigned Physician: Yoni Almonte Reviewed and Electronically Signed By: Yoni Almonte Signed Date: 04/06/2025 11:12 ET Workstation ID: [id number] Transcribed By: Self Edit Transcribed Date: 04/06/2025 09:16 ET Narrative 04/06/2025 11:12 AM EST CLINICAL: 60 years old, Female, routine annual exam. COMPARISON: 03/17/2020 09/10/1922. TECHNIQUE: Bilateral MLO and CC views were obtained digitally with 3-D mammogram (digital breast tomosynthesis). Computer-aided detection was utilized in evaluation of this exam (CAD). FINDINGS: Postbiopsy marker clip in the inferomedial right breast. No suspicious mass or architectural distortion. No suspicious calcification. There has been no significant change from prior exam(s). BREAST DENSITY: B - There are scattered areas of fibroglandular density. Procedure Note Yoni Almonte MD - 04/06/2025 CLINICAL: 60 years old, Female, routine annual exam. COMPARISON: 03/17/2020 09/10/1922. TECHNIQUE: Bilateral MLO and CC views were obtained digitally with 3-Dmammogram (digital breast tomosynthesis). Computer-aided detection wasutilized in evaluation of this exam (CAD). FINDINGS: Postbiopsy marker clip in the inferomedial right breast. No suspicious mass or architectural distortion. No suspiciouscalcification. There has been no significant change from prior exam(s). BREAST DENSITY: B - There are scattered areas of fibroglandular density. IMPRESSION: Benign. BI-RADS CATEGORY: 2 - BENIGN RECOMMENDATION: Screening bilateral mammogram is recommended in 1 year. Mammo Location: [facility], [address] [place] [address], [id number], . -------- FINAL REPORT -------- Dictated By: Yoni Almonte Dictated Date: 04/06/2025 09:15 ET Assigned Physician: Yoni Almonte Reviewed and Electronically Signed By: Yoni Almonte Signed Date: 04/06/2025 11:12 ET Workstation ID: [id number] Transcribed By: Self Edit Transcribed Date: 04/06/2025 09:16 ET us Self Referral Sppl IMG BI PROCEDURES Final Resul t documented in this encounter Visit Diagnoses Diagnosis Encounter for screening mammogram for breast cancer documented in this encounter Care Teams Business Analyst Manager Relationship Specialty Start Date End Date Tai Loera MD [facility] [address] [place] [address] [address] [place] [address] PCP - General Internal Medicine 03/28/25 documented as of this encounter
--- OUTSIDE RECORDS SUMMARY | 2025-04-07 09:05 | XMS_ITS | Patient Health Record ---
Author Organization [facility] Address [address] [place] [address] Care Team Providers Care Liquor Rectifier Name Role Phone Klaus (RETIRED) Bryce JARAMILLO Primary Care Provider Unavailable Gustavo Dominguez Unavailable [phone] Allergies No Known Allergies Results Component Value Reference Range Notes Pathology (Not yet reviewed by provider) Interpretation: Performing Lab:[facility], [address] [place] [id number] Notes/Report: Reason For Referral No Information Immunizations [...] Status Risk Notes Problem Colon cancer screening (057400614) Colon cancer screening (Z12.11) Active confirmed Problem Screening for malignant neoplasm of colon (211954563) Encounter for screening for malignant neoplasm of colon (Z12.11) Active confirmed Problem Diverticular disease of colon (392002245) Diverticulosis of large intestine without perforation or abscess without bleeding (K57.30) Active confirmed Problem Preprocedural examination (775342383563414) Preprocedural examination (Z01.818) Active confirmed Problem Chronic constipation (954561087) Chronic constipation (K59.09) Active confirmed Encounters Encounter Location Date Provider Diagnosis [facility] Out[facility] [address] [place] [phone] 04/13/2024 Gustavo Dominguez Colon cancer scree karen [...] Insured Coverage Start Date Coverage End Date [facility] [address] [place], [place] [id number] EDNA NORTON Self - patient is the insured Medical (General) History Medical History History ICD Code Denies RI,DM,CVA,Lung disease,renal dise ase Negative screening colonosco py in July of 2018 but this was limited due to a somewhat poor prep Surgical History Surgery Date(Month/Year) 1993 D&C, Fibroids 06/2017
--- OUTSIDE RECORDS SUMMARY | 2025-04-07 09:05 | XMS_ITS | Clinical Summary ---
Author Organization [facility] Address [address] [place] [address] Phone Care Team Providers Care Building Maintenance Superintendent Name Role Phone Pcp, Unknown Primary Care [...] Description 05/30/2025 8:00 AM EST Office Visit [facility] Medicine [address] [place] [address] Prasanth Diego MD [address] [place] [address], [address] [place] [address] Health Maintenance Due Date Last Done Comments [...] patient's age to complete this topic IPV VACCINES Aged Out No longer eligi ble based on patient's age to complete this topic MENINGOCOCCAL VACCINES (ACWY) Aged Out No longer eligible based on patient's age to complete this topic MENINGOCOCCAL VACCINES (B) Aged Out N o longer eligible based on patient's age to complete this topic Medical Devices Not on file [place] [address] [address] [place] [address] PPO CANDY LEARY [place], [place]UE [place] OUT OF STATE PPO CANDY LEAYR [place] [employer] OUT OF STATE P[place] CANDY [place] [id number] BL[employer]OSS OUT OF STATE PPO [employer] OUT OF STATE PPO Member Subscriber Plan / Payer (Ef fective 2024-Present) Name:Abbie AleksanderErika boo Relation to Subscriber:Unknown Name:JASVIR NORMAN (Home) Address: [place] [address] Payer ID:[id number] (NAIC) Type:PPO Address: [facility] [address] [place] [phone] Care Teams Building Maintenance Superintendent Relationship Specialty Start Date End Date Pcp, Unknown PCP - General 08/29/24 Additional Source Comments The information contained in this document represents components of the legal health record. It is not the complete legal health record.[facility]
--- OUTSIDE RECORDS SUMMARY | 2025-04-07 09:05 | XMS_ITS | Clinical Summary ---
Author Organization [facility] Address [address] [place] [address] Phone Care Team Providers Care Senior [employer] Net Developer Name Role Phone Tai Loera MD Primary Care Provider [phone]- [phone] Encounters Date Type Department Care Team Description 04/06/2025 8:23 AM EST - 04/06/2025 11:59 PM EST Hospital Encounter [facility] [address] [id number] Encounter for screening mammogram for breast cancer Discharge Disposition: Home or Self Care from Last 3 Months Surgical History Surgery Date Site/Laterality Comments STEREOTACTIC CORE BIOPSY Family History Medical History Relation Name Comments Breast cancer Maternal Grandmother Breast cancer Mother Breast cancer Mother's Sister 1 Breast cancer Mother's Sister 2 Relation Name Status Comments Maternal Grandmother Mother Mother's Sister 1 Alive Mother's Sister 2 Alive Social History Tobacco Use Types Packs/Day Years Used Date Smoking Tobacco: Never Assessed Comments No Sex and Gender Information Value Date Recorded Sex Assigned at Female 03/28/2025 3:31 PM EST Legal Sex Female 1:16 PM EST Gender Identity Female 03/28/2025 3:31 PM EST Sexual Orientation Not on file Obstetrics History Para Term AB IAB SAB Ectopic Multiple Livin g Live Births 3 Last Filed Vital Signs Vital Sign Reading Time Taken Comments Blood Pressure - - Pulse - - Temperature - - Respiratory Rate - - Oxygen Saturation - - Inhaled Oxygen Concentration - - Weight 52.2 kg (115 lb) 04/06/2025 8:38 AM EST Height 165.1 cm (5' 5 ) 04/06/2025 8:38 AM EST Body Mass Index 19.14 04/06/2025 8:38 AM EST Plan of Treatment Health Maintenance Due Date Last Done Comments Colorectal Cancer Screening: Colonoscopy 1965 DTaP,Tdap,and Td Vaccines (1 - Tdap) 02/02/1984 Cervical Cancer Screening: Pap Smear 1986 Pneumococcal Vaccine: 50+ Years (1 of 1 - PCV) 2015 HIV Screening 04/22/2022 Hepatitis C Screening 04/22/2022 Social Influencers of Health Screening 04/22/2022 Depression Screening 05/25/2024 COVID-19 Vaccine (3 - season) 2025 09/21/2020, 08/31/2020 Zoster Vaccines (2 of 2) 05/26/2025 03/31/2025 Breast Cancer Screening 03/17/2026 04/06/20, 03/17/2024, 03/12/2023, Additional history exists RSV Immunization Adult Patients (1 - 1-dose 75+ series) 02/02/2040 Influenza Vaccine Completed 03/28/2025, , 02/16/2009, Additional history exists HIB Vaccines Aged Out No longer eligi [...] Encounter for screening mammogram for breast cancer from Last 3 Months Results * [facility] Digital Screening w Douglas bilat (04/06/2025 8:43 AM EST) Anatomical Region Laterality Modality Breast Bilateral Mammography 04/06/2025 9:15 AM EST Impressions 04/06/2025 11:12 AM EST Benign. BI-RADS CATEGORY: 2 - BENIGN RECOMMENDATION: Screening bilateral mammogram is recommended in 1 year. Mammo Location: [facility], [address] [place] [address], [id number], . -------- FINAL REPORT -------- Dictated By: Yoni Almonte Dictated Date: 04/06/2025 09:15 ET Assigned Physician: Yoni Almonte Reviewed and Electronically Signed By: Yoni Almonte Signed Date: 04/06/2025 11:12 ET Workstation ID: [id number] Transcribed By: Self Edit Transcribed Date: 04/06/2025 [...] year. Mammo Location: [facility], [address] [place] [address], [id number], . -------- FINAL REPORT -------- Dictated By: Yoni Almonte Dictated Date: 04/06/2025 09:15 ET Assigned Physician: Yoni Almonte Reviewed and Electronically Signed By: Yoni Almonte Signed Date: 04/06/2025 11:12 ET Workstation ID: [id number] Transcribed By: Self Edit Transcribed Date: 04/06/2025 09:16 ET us Self Referral Sppl IMG BI PROCEDURES Final Resul t from Last 3 Months Insurance [facility] [place] [id number] Care Teams Senior [employer] Net Developer Relationship Specialty Start Date End Date Tai Loera MD [address] [place] [address] PCP - General Internal Medicine 03/28/25
[2025-04-07 10:33] LABS: Hematocrit 40.8 % (37.0-47.0); Hemoglobin 13.2 g/dl (12.0-16.0); Mean Corpuscular HGB Conc 32.4 g/dl (31.0-35.0); Mean Corpuscular Hemoglobin 30.1 pg (27.0-33.0); Mean Corpuscular Volume 93.2 fL (80.0-98.0); NRBC Abs Auto 0.000 X10*3/uL (0.0-0.012); NRBC Pct Auto 0.0 /100WBC (0.0-0.2); Platelet Count 305 X10*3/uL (160-400); Red Blood Count 4.38 X10*6/uL (4.20-5.50); White Blood Count 4.0 X10*3/uL (4.8-10.8)
[2025-04-07 10:59] LABS: Appearance Urine Hazy; Glucose Urine UA Negative (Negative); PH 6.0 (5.0-9.0); Specific Gravity - Urine <= 1.005 (1.005-1.025); UMIC TRIGGER UA YES
[2025-04-07 11:13] LABS: Alanine Aminotransferase 27 U/L (0-31); Albumin Level 4.7 g/dL (3.5-5.0); Alkaline Phosphatase 58 U/L (39-117); Anion Gap 11 (12-20); Aspartate Amino Transferase 33 U/L (5-31); Blood Urea Nitrogen 16 mg/dL (9-16); Calcium 8.7 mg/dL (8.4-10.2); Carbon Dioxide 25 mmol/L (22-29); Chloride 110 mmol/L (96-108); Cholesterol 206 mg/dL (<200); Estimated Glomerular Filt Rate > 60; HDL Cholesterol 95 mg/dL (>40); Potassium 4.1 mmol/L (3.3-5.1); Sodium 142 mmol/L (135-145); Total Protein 7.0 g/dL (6.5-8.0); Triglycerides 41 mg/dL (<150)
[2025-04-07 11:15] LABS: Thyroid Stimulating Hormone 0.88 uIU/mL (0.32-4.0)
== END 2025-04-07 08:47 | disposition home or self-care (01) ==
LOC: HO.HMGCLDS 08:46
PROVIDERS: PCP Internal Medicine; Visit Provider Internal Medicine
DX: E78.5 Hyperlipidemia, unspecified (principal)
CPT/HCPCS: 36415; 80048; 80061; 80076; 81001; 84443; 85027